=== PATIENT | female | born 1950 | race Caucasian/White ===

== ENCOUNTER 2023-09-22 06:41 | Outpatient (REF) | payer BC, SELFPAY ==
--- NOTE | ~2023-09-22 | XR_ITS ---
EXAMINATION: XR KNEE, LEFT CLINICAL INFORMATION: Pain in left knee. COMPARISON: None available. TECHNIQUE: Three views of the left knee. FINDINGS: The bones are diffusely demineralized. Moderate joint effusion. Status post total knee arthroplasty. Hardware appears intact. Alignment is appropriate. XR/XR knee LT 3V IMPRESSION: Status post total knee arthroplasty. Hardware appears intact.
== END 2023-09-22 06:42 | disposition home or self-care (01) ==
LOC: HO.HOSX 06:41
PROVIDERS: Visit Provider Orthopaedic Surgery
DX: M25.562 Pain in left knee (principal); M25.512 Pain in left shoulder; Z96.652 Presence of left artificial knee joint
CPT/HCPCS: 73562

== ENCOUNTER 2023-09-22 10:11 | Outpatient (AMB) | payer BC, SELFPAY ==
--- NOTE | 2023-09-22 10:12 | A.OFFVIS_ITS ---
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 The patient did undergo left total knee replacement surgery in March of 2022. She reports minimal discomfort in her left knee. She denies any fevers or chills. The patient states that she underwent left shoulder rotator cuff repair surgery several years ago. She apparently re-injured her shoulder following that surgery and required revision surgery. The patient states that she has difficulty lifting her left hand above shoulder height. She has done physical therapy exercises which gave her minimal relief. The patient has been told that she may have re-injured her rotator cuff tendons. Allergies enbril Allergy (Mild, Uncoded 09/22/23 10:22) Hives humara Allergy (Mild, Uncoded 09/22/23 10:22) Hives PFSH Surgical History (Updated 09/22/23 @ 10:24 by Guillermina Rojas CMA) Hx of shoulder surgery Hx of left knee surgery (~03/2022) Social History (Updated 09/22/23 @ 10:23 by Guillermina Rojas CMA) Patient Tobacco Use Status: Never used Tobacco Current occupational status: retired Current occupation: Right hand dominant Physical Exam Vital Signs: BMI result Body Mass Index 21.6 Const Other: Well-nourished well-developed very friendly female awake alert and oriented x3 in no acute distress Extrem Other: Bilateral upper extremity examination shows good capillary refill, no skin lesions noted, normal sensation light touch Left shoulder examination shows decreased range of motion when compared to her right shoulder, 3/5 strength with supraspinatus testing, positive impingement signs, no instability Left knee examination shows that the surgical incision is well healed, no erythema, full active extension and flexion to 125 degrees, her patella tracks well Results Reviewed Results Reviewed: X-rays of the patient's left knee show a total knee arthroplasty in good position with no signs of loosening, no acute bony abnormalities Assessment & Plan Assessment & Plan (1) Left shoulder pain: Code(s): M25.512 - Pain in left shoulder Category: Medical (2) Left knee pain: Code(s): M25.562 - Pain in left knee Category: Medical Plan Ms. Gómez continues to do well after undergoing left total knee replacement surgery in March 2022. She will continue with her home exercise program. She does know to take antibiotics before any dental work. The patient does have progressively worsening left shoulder pain and weakness most likely due to a recurrent rotator cuff tear. Thus, I will send the patient for an MRI of her left shoulder for further evaluation. I will see her back once the MRI is completed to discuss the findings and treatment options. Feel free to call me at any time should questions regarding her orthopedic management arise. I spent 20 minutes in reviewing the patient's records and imaging studies, seeing the patient and documenting in the medical record. Orders: Orders XR knee LT 3V Today M25.562 - Pain in left knee MR shoulder LT wo con Today M25.512 - Pain in left shoulder Coding Level of Care Code Est Pt Level 3 (33384) Diagnoses Left shoulder pain M25.512 Left knee pain M25.562
[2023-09-22 10:20] VITALS: BMI 21.6
== END 2023-09-22 10:54 | disposition home or self-care (01) ==
PROVIDERS: PCP Internal Medicine; Visit Provider Orthopaedic Surgery
DX: M25.512 Pain in left shoulder (principal); M25.562 Pain in left knee
CPT/HCPCS: 99213

== ENCOUNTER 2023-10-19 10:08 | Outpatient (AMB) | payer MEDICARE, SELFPAY ==
[2023-10-19 10:28] VITALS: BMI 21.6
--- NOTE | 2023-10-19 10:28 | MHC.OFFVIS ---
Vital Signs 10/19/23 10:28 Height 5 ft 3 in Weight 122 lb BMI 21.6 Intake Visit Reasons: Preop LT shoulder 10/28/23 DR Intake Note: Minal Winkler is a 72 year old female who presents with complaints of progressively worsening left shoulder pain and stiffness. The patient states that she underwent left shoulder rotator cuff repair surgery several years ago. She apparently re-injured her shoulder following that surgery and required revision surgery. The patient states that she has difficulty lifting her left hand above shoulder height. She has done physical therapy exercises which gave her minimal relief. She has had injections in the past which gave her minimal relief. Allergies kiwi Allergy (Severe, Verified 10/19/23 10:30) Anaphylaxis enbril Allergy (Intermediate, Uncoded 10/19/23 10:30) Hives humara Allergy (Intermediate, Uncoded 10/19/23 10:30) Hives Medication List - Last Reconciled 10/19/23 by Alexander Babb MD acetaminophen 1,000 mg PO Q6H PRN carvedilol 3.125 mg PO BID doxycycline monohydrate 100 mg PO BID ferrous sulfate (iron) 325 mg PO DAILY hydrochlorothiazide 25 mg PO DAILY losartan 100 mg PO DAILY simvastatin 20 mg PO BEDTIME upadacitinib ER (Rinvoq) 15 mg PO Q OTHER DAY PFSH Medical History Hx of renal calculi Anemia Rheumatoid arthritis Elevated cholesterol HTN (hypertension) Surgical History Hx of LASIK Hx of colonoscopy History of surgery on right wrist (~2018) S/P MARISABEL-BSO (total abdominal hysterectomy and bilateral salpingo-oophorectomy) (~1990) History of total left knee replacement (TKR) (~03/2022) History of repair of left rotator cuff History of bladder surgery (~03/2023) Social History Household Members: Spouse Housing: Condominium Are you a primary care management associate to a significant other at home: No Do you presently have visiting nurse or other home services: No Patient Tobacco Use Status: Former Tobacco user Quit Date: 1983 Tobacco use type: Cigarette Current occupational status: retired Current occupation: Right hand dominant Physical Exam Vital Signs: BMI result Body Mass Index 21.6 Const Other: Well-nourished well-developed very friendly female awake alert and oriented x3 in no acute distress Extrem Other: Bilateral upper extremity examination shows good capillary refill, no skin lesions noted, normal sensation light touch Left shoulder examination shows that the surgical incisions are well healed, no erythema, decreased active and passive range of motion when compared to her right shoulder, 4+ out of 5 strength with supraspinatus testing, no instability Results Reviewed Results Reviewed: MRI of the patient's left shoulder shows severe acromioclavicular joint narrowing, a type 2 acromion, signal change within the supraspinatus tendon most likely due to adhesive capsulitis Assessment & Plan Assessment & Plan (1) Left shoulder pain: Code(s): M25.512 - Pain in left shoulder Category: Medical Plan Ms. Gómez presents with left shoulder pain and stiffness due to impingement syndrome, acromioclavicular joint arthritis and adhesive capsulitis. I had a lengthy discussion with the patient regarding the treatment options. At this point she has failed continued non operative treatments. The risks and benefits of left shoulder surgery were discussed at length with the patient. The patient wishes to proceed with surgery. Surgery will most likely involve left shoulder diagnostic arthroscopy with distal clavicle excision, acromioplasty, anterior capsular release and manipulation under anesthesia. The patient was given a prescription for Vicodin at her preoperative appointment. She will follow-up as instructed. Feel free to call me at any time should questions regarding her orthopedic management arise. I spent 21 minutes in reviewing the patient's records and imaging studies, seeing the patient and documenting in the medical record. Medications: New hydrocodone-acetaminophen 5-325 mg Partial Fill upon patient request. Take 1-2 tabs every 4 hours as needed for pain following your left shoulder surgery 2 tabs PO Q4H 1 week PRN 40 tabs 0RF pain Coding Level of Care Code Est Pt Level 3 (76222) Diagnoses Left shoulder pain M25.512
== END 2023-10-19 10:48 | disposition home or self-care (01) ==
PROVIDERS: PCP Internal Medicine; Visit Provider Orthopaedic Surgery
DX: M25.512 Pain in left shoulder (principal)
CPT/HCPCS: 99214

== ENCOUNTER → 2023-10-19 10:08 | Outpatient (BNVA) | payer MEDICARE, SELFPAY | PROVIDERS: PCP Internal Medicine; Visit Provider Orthopaedic Surgery | DX: M25.512 Pain in left shoulder (principal) | CPT/HCPCS: 99212 ==

== ENCOUNTER 2023-10-28 10:04 | Day surgery (SDC) | payer MEDICARE, SELFPAY ==
[2023-10-14 09:39] VITALS: BMI 21.3
[2023-10-28 11:03] VITALS: BP 138/61; PULSE 70; RESP 16; TEMP 36.4; O2SAT 98; BMI 22.2
--- NOTE | 2023-10-28 11:25 | HO.ANESPROP2 ---
Documented by User: Darcie Rodriguez NP 10/26/23 13:45 HPI - Anesthesia Eval Consult details Narrative: 72yo F for Left Shoulder Arthroscopy distal clavicle excision,Acromioplasty,capsular release Medically optimized per [facility] Preop clinic [facility] Active Problems Active Problems: All Active Problems (Updated 10/14/23 @ 09:39 by Hanna George RN) Left shoulder pain (Acute) Left knee pain (Acute) Past Medical History Medical History Hx of renal calculi Anemia Rheumatoid arthritis Elevated cholesterol HTN (hypertension) Surgical History Surgical History Hx of LASIK Hx of colonoscopy History of surgery on right wrist (~2018) S/P MARISABEL-BSO (total abdominal hysterectomy and bilateral salpingo-oophorectomy) (~1990) History of total left knee replacement (TKR) (~03/2022) History of repair of left rotator cuff History of bladder surgery (~03/2023) Social History Social History Household Members: [facility] Are you a primary director day care center to a significant other at home: No Do you presently have visiting nurse or other home services: No Patient Tobacco Use Status: Former Tobacco user Tobacco use type: Cigarette Use of substances other than those prescribed or required for medical reasons: No Have you been hit, kicked, punched, or otherwise hurt by someone within the past year? If so, by whom?: No Are you DNR?: No Advance Directives: No Advance Directives Information Provided: Yes Advance Directives on File: No Recently lost weight without trying: No Nutrition Risks: No Nutritional Risk Poor oral hygiene: No Current occupational status: retired Current occupation: Right hand dominant Meds Allergies Allergy/AdvReac Type Severity Reaction Status Date / Time kiwi Allergy Severe Anaphylaxis Verified 10/28/23 10:44 enbril Allergy Intermediate Hives Uncoded 10/28/23 10:44 humara Allergy Intermediate Hives Uncoded 10/28/23 10:44 Active Medications: Current Medications Cefazolin Sodium/Dextrose (Ancef) 2 gm in 50 mls @ 100 mls/hr IV PREOP ONE Stop: 10/28/23 06:02 Home Medications ?Medication ?Instructions ?Recorded ?Confirmed ?Last Taken ?Type carvedilol 3.125 mg tablet 3.125 mg PO BID 09/22/23 10/28/23 10/28/23 History hydrochlorothiazide 25 mg tablet 25 mg PO DAILY 09/22/23 10/28/23 10/27/23 History losartan 100 mg tablet 100 mg PO DAILY 09/22/23 10/28/23 10/27/23 History simvastatin 20 mg tablet 20 mg PO BEDTIME 09/22/23 10/28/23 Unknown History upadacitinib 15 mg tablet,extended 15 mg PO Q OTHER DAY 09/22/23 10/28/23 10/25/23 History release 24 hr (Rinvoq) acetaminophen 500 mg tablet 1,000 mg PO Q6H PRN Pain 10/14/23 10/28/23 10/27/23 History ferrous sulfate 325 mg (65 mg 325 mg PO DAILY 10/14/23 10/28/23 10/27/23 History iron) tablet (iron) doxycycline monohydrate 100 mg 100 mg PO BID 10/19/23 10/28/23 10/27/23 History tablet Exam Height,Weight and Vital Signs: Height 5 ft 3 in Weight 54.431 kg Pertinent Lab Results Pertinent Lab Results: 09/2023 BMP WNL except slight elevated BUN/Creat Narrative Narrative: EKG 09/2023 NSR @ 80 Low volt QRS [address] and T abn Assessment and Plan Assessment Anesthesia Assessment: Chart Reviewed Documented by User: Kimber Copeland DO 10/28/23 14:36 PMFSH Past Medical History Medical History Hx of renal calculi Anemia Rheumatoid arthritis Elevated cholesterol HTN (hypertension) Family History Family history of problems with anesthesia: No Surgical History Surgical History Hx of LASIK Hx of colonoscopy History of surgery on right wrist (~2018) S/P MARISABEL-BSO (total abdominal hysterectomy and bilateral salpingo-oophorectomy) (~1990) History of total left knee replacement (TKR) (~03/2022) History of repair of left rotator cuff History of bladder surgery (~03/2023) History of Problems with Anesthesia: No Social History Social History Household Members: [facility] Are you a primary director day care center to a significant other at home: No Do you presently have visiting nurse or other home services: No Patient Tobacco Use Status: Former Tobacco user Tobacco use type: Cigarette Use of substances other than those prescribed or required for medical reasons: No Have you been hit, kicked, punched, or otherwise hurt by someone within the past year? If so, by whom?: No Are you DNR?: No Advance Directives: No Advance Directives Information Provided: Yes Advance Directives on File: No Recently lost weight without trying: No Nutrition Risks: No Nutritional Risk Poor oral hygiene: No Current occupational status: retired Current occupation: Right hand dominant Meds Allergies Allergy/AdvReac Type Severity Reaction Status Date / Time kiwi Allergy Severe Anaphylaxis Verified 10/28/23 10:44 enbril Allergy Intermediate Hives Uncoded 10/28/23 10:44 humara Allergy Intermediate Hives Uncoded 10/28/23 10:44 Home Medications ?Medication ?Instructions ?Recorded ?Confirmed ?Last Taken ?Type carvedilol 3.125 mg tablet 3.125 mg PO BID 09/22/23 10/28/23 10/28/23 History hydrochlorothiazide 25 mg tablet 25 mg PO DAILY 09/22/23 10/28/23 10/27/23 History losartan 100 mg tablet 100 mg PO DAILY 09/22/23 10/28/23 10/27/23 History simvastatin 20 mg tablet 20 mg PO BEDTIME 09/22/23 10/28/23 Unknown History upadacitinib 15 mg tablet,extended 15 mg PO Q OTHER DAY 09/22/23 10/28/23 10/25/23 History release 24 hr (Rinvoq) acetaminophen 500 mg tablet 1,000 mg PO Q6H PRN Pain 10/14/23 10/28/23 10/27/23 History ferrous sulfate 325 mg (65 mg 325 mg PO DAILY 10/14/23 10/28/23 10/27/23 History iron) tablet (iron) doxycycline monohydrate 100 mg 100 mg PO BID 10/19/23 10/28/23 10/27/23 History tablet Exam Exam Date and Time: October 28, 2023 1123 Height,Weight and Vital Signs: Height 5 ft 3 in Weight 54.431 kg Vital Signs Temperature 97.6 F 10/28/23 11:03 Pulse Rate 70 10/28/23 11:03 Respiratory Rate 16 10/28/23 11:03 Blood Pressure 138/61 10/28/23 11:03 Pulse Oximetry 98 10/28/23 11:03 Oxygen Delivery Method Room Air 10/28/23 11:03 Temperature 97.3 F 10/28/23 14:20 Pulse Rate 64 10/28/23 14:30 Respiratory Rate 16 10/28/23 14:30 Blood Pressure 153/74 H 10/28/23 14:30 Pulse Oximetry 97 10/28/23 14:30 Oxygen Delivery Method Room Air 10/28/23 14:30 Airway Mallampati Class: I TM Dist: >3cm Neck ROM: Full Loose/Missing/Broken Teeth: No (patient denies any loose or broken teeth) Heart: S1S2 Lungs: CTAB Assessment and Plan Assessment Anesthesia Assessment: Anesthesia Plan Discussed and Chart Reviewed Final Anesthetic Review Family History of Problems with Anesthesia: No History of Problems with Anesthesia: No NPO: Yes ASA Class: II Final Preanesthetic Review: No Changes in Pt Med Stat, Meds/Allgs Chart Reviewed, Consent Obtained/Reviewed and Anes Risks/Benef Reviewed Patient Risk: Low Procedure Risk: Intermediate Anesthetic Plan Anesthetic Plan: GA, Regional Block (left brachial plexus block) and Agree w/ Assess. and Plan Disposition: Standard PACU
[2023-10-28] MEDS: Lactated Ringers 1,000 ML 100 ML IVCONT (11:30)
--- NOTE | 2023-10-28 14:19 | P.BOP_ITS ---
Brief Operative Note Date of Service: 10/28/23 Pre-op diagnosis: Left shoulder impingement syndrome, left shoulder acromioclavicular joint arthritis, left shoulder glenohumeral joint arthritis, left shoulder adhesive capsulitis Post-op diagnosis: same Procedure: Left shoulder diagnostic arthroscopy with left shoulder arthroscopic distal clavicle excision, left shoulder arthroscopic acromioplasty, left shoulder arthroscopic glenohumeral joint debridement, left shoulder arthroscopic anterior capsular release, left shoulder manipulation under anesthesia Implants: none Surgeon: Alexander Babb MD Anesthesia: GLMA and regional Was an Theatrical Scenic Designer used for this Procedure?: No Estimated blood loss (mL): 10 Pathology: none sent Condition: stable Disposition: PACU
[2023-10-28 14:20] VITALS: BP 155/69; PULSE 60; RESP 14; TEMP 36.3; O2SAT 98
--- NOTE | 2023-10-28 14:20 | P.OP_ITS ---
Operative Note Operative Note Date of Service: 10/28/23 Narrative: After the patient was identified as Minal Gómez and her left shoulder was initialed by myself the patient was brought to the holding area where a left shoulder interscalene regional block was performed by the anesthesiologist in routine fashion. The patient was then brought to the operating room where general anesthesia was induced by the anesthesiologist in routine fashion. The patient was given 2 grams of IV Ancef preoperatively for infection prophylaxis. Examination under anesthesia of the patient's left shoulder showed decreased range of motion when compared to the right shoulder. The patient's left mateo ulder had forward flexion to 120 degrees compared to 160 degrees, external rotation to 30 degrees compared to 50 degrees, and internal rotation to 30 degrees compared to 40 degrees. The patient was gently positioned in the beach chair position with all bony prominences well padded. The patient's left shoulder region and upper extremity were prepped and draped in sterile fashion. A formal time-out was completed. A #11 scalpel blade was used to make a posterior portal 2 cm inferior and 1 cm medial to the posterolateral corner of the acromion. Blunt trocar technique was used to enter the glenohumeral joint in routine fashion. An anterior portal was made just lateral to the coracoid process after proper positioning was confirmed using a spinal needle. Diagnostic arthroscopy showed diffuse grade 2 and 3 degenerative changes of the humeral head articular surface as well as grade 3 and 4 degenerative changes of the glenoid articular surface. The articular surfaces of the humeral head and glenoid were then made smooth using the arthroscopic shaver. There was no evidence of rotator cuff tearing. The biceps tendon was not identified. There was inflammation of the anterior joint capsule consistent with adhesive capsulitis. The ArthroCare Wand was then used to perform an anterior capsular release between the inferior border of the biceps tendon and the superior border of the subscapularis tendon. The arthroscope was then placed from the posterior portal into the subacromial space. A lateral portal was made 2 fingerbreadths lateral to the anterior lateral corner of the acromion. The ArthroCare Wand was used to ablate soft tissues along the undersurface of the acromion as well as to excise the coracoacromial ligament. There was a sharp spur along the undersurface of the acromion which was removed using the hooded bur. The arthroscope was then placed into the lateral portal and the acromioplasty was completed with the bur in the posterior portal using the posterior aspect of the acromion as a cutting block. The ArthroCare Wand was then brought in through the anterior portal and was used to ablate soft tissues along the acromioclavicular joint and distal clavicle. The posterior and superior ligamentous structures were left intact. A distal clavicle excision of 4 mm was performed using the hooded bur. Any remaining bursal tissue was removed using the arthroscopic shaver. The subacromial space was irrigated and then drained. All arthroscopic instruments were removed. A gentle manipulation under anesthesia was then performed. Full passive range of motion was easily attained. The 3 portals were closed with 3-0 nylon interrupted suture. The subacromial space was injected with Marcaine. Dry sterile dressing was placed over all incisions. The patient's left upper extremity was placed into a sling. The patient was awoken and extubated in the operating room. The patient was transferred to the recovery room in stable condition.
[2023-10-28 14:25] VITALS: BP 155/70; PULSE 72; RESP 16; O2SAT 99
[2023-10-28 14:30] VITALS: BP 153/74; PULSE 64; RESP 16; O2SAT 97
[2023-10-28 14:35] VITALS: BP 166/77; PULSE 62; RESP 16; O2SAT 98
[2023-10-28] MEDS: cefTRIAXone sodium 1 GM in 0.9 % Sodium Chloride 50 ML IV (14:41)
[2023-10-28 14:50] VITALS: BP 155/70; PULSE 66; RESP 16; O2SAT 98
== END 2023-10-28 15:46 | disposition home or self-care (01) ==
PROVIDERS: Visit Provider Orthopaedic Surgery
PROC: (CPT 29805; principal; 2023-10-28 13:00)
DX: M75.42 Impingement syndrome of left shoulder (principal); M19.012 Primary osteoarthritis, left shoulder; M75.02 Adhesive capsulitis of left shoulder; M19.022 Primary osteoarthritis, left elbow; I10 Essential (primary) hypertension; Z79.899 Other long term (current) drug therapy
CPT/HCPCS: 29822; 29826; J0131; J0171; J0690; J0696; J1100; J2250; J2405; J2704; J2795; J3010

== ENCOUNTER → 2023-10-28 10:04 | Outpatient (BNV) | payer MEDICARE, SELFPAY | PROVIDERS: Visit Provider Orthopaedic Surgery | DX: M75.42 Impingement syndrome of left shoulder (principal); M19.012 Primary osteoarthritis, left shoulder; M75.02 Adhesive capsulitis of left shoulder | CPT/HCPCS: 29824; 29826 ==

== ENCOUNTER 2023-11-10 09:04 | Outpatient (AMB) | payer MEDICARE, SELFPAY ==
--- NOTE | 2023-11-10 09:07 | MHC.OFFVIS ---
Vital Signs 11/10/23 09:10 Height 5 ft 3 in Weight 120 lb BMI 21.3 Handedness Right Intake Visit Reasons: PO LT shoulder 10/28/23 Intake Note: Minal is a 73 year old female who presents today for a post operative visit, s/p Left shoulder 10/28/23 . The patient reports mild intermittent discomfort in her left shoulder. She has no longer taking narcotics for discomfort. She denies any fevers or chills. She continues with her home stretching program. Allergies kiwi Allergy (Severe, Verified 11/10/23 09:10) Anaphylaxis enbril Allergy (Intermediate, Uncoded 11/10/23 09:10) Hives humara Allergy (Intermediate, Uncoded 11/10/23 09:10) Hives Medication List - Last Reconciled 11/11/23 by Alexander Babb MD acetaminophen 1,000 mg PO Q6H PRN carvedilol 3.125 mg PO BID doxycycline monohydrate 100 mg PO BID ferrous sulfate (iron) 325 mg PO DAILY hydrochlorothiazide 25 mg PO DAILY losartan 100 mg PO DAILY simvastatin 20 mg PO BEDTIME upadacitinib ER (Rinvoq) 15 mg PO Q OTHER DAY PFSH Medical History Hx of renal calculi Anemia Rheumatoid arthritis Elevated cholesterol HTN (hypertension) Surgical History Hx of LASIK Hx of colonoscopy History of surgery on right wrist (~2018) S/P MARISABEL-BSO (total abdominal hysterectomy and bilateral salpingo-oophorectomy) (~1990) History of total left knee replacement (TKR) (~03/2022) History of repair of left rotator cuff History of bladder surgery (~03/2023) Social History Household Members: Spouse Housing: Condominium Are you a primary acute care occupational therapist to a significant other at home: No Do you presently have visiting nurse or other home services: No Patient Tobacco Use Status: Former Tobacco user Tobacco use type: Cigarette Current occupational status: retired Current occupation: Right hand dominant Physical Exam Vital Signs: BMI result Body Mass Index 21.3 Extrem Other: Left shoulder examination shows that the surgical incisions are healing well, no erythema, improved range of motion when compared to her preoperative exam, mild discomfort with range of motion, no instability Assessment & Plan Assessment & Plan (1) Left shoulder pain: Code(s): M25.512 - Pain in left shoulder Category: Medical Plan Ms. Gómez is doing very well after undergoing left shoulder arthroscopic surgery on 10/28/2023. Her sutures were removed and Steri-Strips placed over her incisions. She will continue with her home stretching program. The do's and don'ts of lifting were discussed at length with the patient. She will contact me prior to her follow-up appointment in 6 weeks should any questions or concerns arise. Feel free to call me at any time should questions regarding her orthopedic management arise. Coding Level of Care Code Global (06138) Diagnoses Left shoulder pain M25.512
[2023-11-10 09:10] VITALS: BMI 21.3
== END 2023-11-10 09:24 | disposition home or self-care (01) ==
PROVIDERS: PCP Internal Medicine; Visit Provider Orthopaedic Surgery
DX: M25.512 Pain in left shoulder (principal)
CPT/HCPCS: 99024

== ENCOUNTER → 2023-11-10 09:04 | Outpatient (BNVA) | payer MEDICARE, SELFPAY | PROVIDERS: PCP Internal Medicine; Visit Provider Orthopaedic Surgery | DX: Z47.89 Encounter for other orthopedic aftercare (principal); M25.512 Pain in left shoulder; Z98.890 Other specified postprocedural states | CPT/HCPCS: 99212 ==

== ENCOUNTER 2023-12-29 10:37 | Outpatient (AMB) | payer MEDICARE, SELFPAY ==
--- NOTE | 2023-12-29 10:37 | MHC.OFFVIS ---
Intake Visit Reasons: PO LT shoulder 10/28/23 DR Hebert Note: Minal is a 73 year old female who presents today for a post operative visit, s/p left shoulder done 10/28/[address] Babb. Patient reports she is doing well and she continues to do home stretches. She denies any fevers or chills. She does not take any medicines for discomfort. Allergies kiwi Allergy (Severe, Verified 12/29/23 10:37) Anaphylaxis enbril Allergy (Intermediate, Uncoded 12/29/23 10:37) Hives humara Allergy (Intermediate, Uncoded 12/29/23 10:37) Hives Medication List - Last Reconciled 12/29/23 by Alexander Babb MD acetaminophen 1,000 mg PO Q6H PRN carvedilol 3.125 mg PO BID ferrous sulfate (iron) 325 mg PO DAILY hydrochlorothiazide 25 mg PO DAILY losartan 100 mg PO DAILY simvastatin 20 mg PO BEDTIME upadacitinib ER (Rinvoq) 15 mg PO Q OTHER DAY PFSH Medical History Hx of renal calculi Anemia Rheumatoid arthritis Elevated cholesterol HTN (hypertension) Surgical History Hx of LASIK Hx of colonoscopy History of surgery on right wrist (~2018) S/P MARISABEL-BSO (total abdominal hysterectomy and bilateral salpingo-oophorectomy) (~1990) History of total left knee replacement (TKR) (~03/2022) History of repair of left rotator cuff History of bladder surgery (~03/2023) Social History Household Members: Spouse Housing: Condominium Are you a primary acute care assistant to a significant other at home: No Do you presently have visiting nurse or other home services: No Patient Tobacco Use Status: Former Tobacco user Tobacco use type: Cigarette Current occupational status: retired Current occupation: Right hand dominant Physical Exam Extrem Other: Left shoulder examination shows that the surgical incisions are well healed, no erythema, almost full range of motion when compared to her right shoulder, minimal discomfort with range of motion, 5/5 strength with supraspinatus testing, no instability Assessment & Plan Assessment & Plan (1) Left shoulder pain: Code(s): M25.512 - Pain in left shoulder Category: Medical Plan Ms. Gómez continues to do well after undergoing left shoulder arthroscopic surgery on 10/28/2023. She will continue with her [id number] exercises to prevent stiffness. The do's and don'ts of lifting were discussed at length with the patient. She will follow up with me on an as-needed basis should her symptoms not plateau at an unacceptable level over the next few months. Feel free to call me at any time should questions regarding her orthopedic management arise. Coding Level of Care Code Global (51021) Diagnoses Left shoulder pain M25.512
== END 2023-12-29 11:09 | disposition home or self-care (01) ==
PROVIDERS: PCP Internal Medicine; Visit Provider Orthopaedic Surgery
DX: M25.512 Pain in left shoulder (principal)
CPT/HCPCS: 99024

== ENCOUNTER → 2023-12-29 10:37 | Outpatient (BNVA) | payer MEDICARE, SELFPAY | PROVIDERS: PCP Internal Medicine; Visit Provider Orthopaedic Surgery | DX: Z47.89 Encounter for other orthopedic aftercare (principal); M25.512 Pain in left shoulder; Z98.890 Other specified postprocedural states | CPT/HCPCS: 99212 ==

== ENCOUNTER 2024-03-14 10:11 | Outpatient (AMB) | payer MEDICARE, SELFPAY ==
[2024-03-14 10:20] VITALS: BMI 21.3
--- NOTE | 2024-03-14 10:20 | MHC.OFFVIS ---
Vital Signs 03/14/24 10:20 Height 5 ft 3 in Weight 120 lb BMI 21.3 Intake Visit Reasons: Left thigh pain Intake Note: Minal Winkler margaret 73 year old female who presents with complaints of intermittent left thigh pain as well as aches throughout her body. The patient's does have a history of rheumatoid arthritis. She states that she was recently seen by a transplant coordinator in [place] who switched her medications. She has been on a new medication for approximately 1 month. She was told that it may take up to 3 months for the medication to help with her pain. She denies any fevers or chills. She denies any locking or giving way. She has taken Tylenol and anti-inflammatory medicines which gave her mild relief. Allergies kiwi Allergy (Severe, Verified 03/14/24 10:22) Anaphylaxis enbril Allergy (Intermediate, Uncoded 12/29/23 10:37) Hives humara Allergy (Intermediate, Uncoded 12/29/23 10:37) Hives Medication List - Last Reconciled 03/14/24 by Alexander Babb MD acetaminophen 1,000 mg PO Q6H PRN carvedilol 3.125 mg PO BID ferrous sulfate (iron) 325 mg PO DAILY hydrochlorothiazide 25 mg PO DAILY losartan 100 mg PO DAILY simvastatin 20 mg PO BEDTIME upadacitinib ER (Rinvoq) 15 mg PO Q OTHER DAY PFSH Medical History Hx of renal calculi Anemia Rheumatoid arthritis Elevated cholesterol HTN (hypertension) Surgical History Hx of LASIK Hx of colonoscopy History of surgery on right wrist (~2018) S/P MARISABEL-BSO (total abdominal hysterectomy and bilateral salpingo-oophorectomy) (~1990) History of total left knee replacement (TKR) (~03/2022) History of repair of left rotator cuff History of bladder surgery (~03/2023) Social History Household Members: Spouse Housing: Condominium Are you a primary post acute care registered nurse to a significant other at home: No Do you presently have visiting nurse or other home services: No Patient Tobacco Use Status: Former Tobacco user Tobacco use type: Cigarette Current occupational status: retired Current occupation: Right hand dominant Physical Exam Vital Signs: BMI result Body Mass Index 21.3 Const Other: Well-nourished well-developed very friendly female awake alert and oriented x3 in no acute distress Extrem Other: Bilateral lower extremity examination shows good capillary refill, no skin lesions noted, normal sensation light touch Left knee examination shows that the surgical incision is well healed, no erythema, full active extension and flexion to 120 degrees, her patella tracks well Assessment & Plan Assessment & Plan (1) Pain of left thigh: Code(s): M79.652 - Pain in left thigh Plan Ms. Gómez presents with left thigh pain and diffuse muscle aches most likely due to a flare-up of her rheumatoid arthritis. At this point she does not appear to have any evidence of left total knee arthroplasty infection or mechanical failure. I did give the patient a prescription for tramadol to help with her discomfort. She will follow up with her transplant coordinator as scheduled. She will contact me prior to her follow-up appointment in 3 months should her symptoms worsen in any way. Feel free to call me at any time should questions regarding her orthopedic management arise. I spent 22 minutes in reviewing the patient's records and imaging studies, seeing the patient and documenting in the medical record. Medications: New tramadol 50 mg PO Q8H PRN 60 tabs 0RF pain Coding Level of Care Code Est Pt Level 3 (11311) Complex EM visit Add On G2211 Diagnoses Pain of left thigh M79.652
== END 2024-03-14 10:55 | disposition home or self-care (01) ==
PROVIDERS: PCP Internal Medicine; Visit Provider Orthopaedic Surgery
DX: M79.652 Pain in left thigh (principal)
CPT/HCPCS: 99213; G2211

== ENCOUNTER → 2024-03-14 10:11 | Outpatient (BNVA) | payer MEDICARE, SELFPAY | PROVIDERS: PCP Internal Medicine; Visit Provider Orthopaedic Surgery | DX: M79.652 Pain in left thigh (principal) | CPT/HCPCS: 99212 ==

== ENCOUNTER 2024-12-03 13:14 | Outpatient (AMB) | payer MEDICARE, SELFPAY ==
--- NOTE | 2024-12-03 13:17 | MHC.OFFVIS ---
Vital Signs 12/03/24 13:21 Height 5 ft 3 in Weight 120 lb BMI 21.3 Intake Visit Reasons: OV- LT shoulder 10/28/23 , Neck pain Intake Note: Minal is a 74 year old female who presents with complaints of progressively worsening neck pain which radiates into her left arm. She describes her pain as sharp in nature. She does have a history of rheumatoid arthritis. She has not had surgery on her neck. Her symptoms have gotten worse over the last year. She also reports intermittent weakness in her left arm. She has failed the last 6 weeks of conservative treatment which have included Tylenol, anti-inflammatory medicines, a home exercise program and physical therapy exercises. The patient did undergo left shoulder arthroscopic surgery on 10/28/2023. She reports mild to moderate intermittent discomfort in her left shoulder as well. Allergies kiwi Allergy (Severe, Verified 12/03/24 13:20) Anaphylaxis enbril Allergy (Intermediate, Uncoded 12/03/24 13:20) Hives humara Allergy (Intermediate, Uncoded 12/03/24 13:20) Hives Medication List - Last Reconciled 12/03/24 by Alexander Babb MD acetaminophen 1,000 mg PO Q6H PRN carvedilol 3.125 mg PO BID ferrous sulfate (iron) 325 mg PO DAILY hydrochlorothiazide 25 mg PO DAILY losartan 100 mg PO DAILY simvastatin 20 mg PO BEDTIME tramadol 50 mg PO Q8H PRN upadacitinib ER (Rinvoq) 15 mg PO Q OTHER DAY PFSH Medical History Hx of renal calculi Anemia Rheumatoid arthritis Elevated cholesterol HTN (hypertension) Surgical History Hx of LASIK Hx of colonoscopy History of surgery on right wrist (~2018) S/P MARISABEL-BSO (total abdominal hysterectomy and bilateral salpingo-oophorectomy) (~1990) History of total left knee replacement (TKR) (~03/2022) History of repair of left rotator cuff History of bladder surgery (~03/2023) Social History Household Members: Spouse Housing: Condominium Are you a primary wound care technician to a significant other at home: No Do you presently have visiting nurse or other home services: No Patient Tobacco Use Status: Former Tobacco user Tobacco use type: Cigarette Current occupational status: retired Current occupation: Right hand dominant Physical Exam Const Other: Well-nourished well-developed very friendly female awake alert and oriented x3 in no acute distress Neck Other: Cervical spine examination shows left-sided paraspinal muscle tenderness, pain with range of motion, positive Spurling's test, 4/5 strength with testing of her left biceps and wrist extensors when compared to 5/5 strength on her right side Extrem Other: Left shoulder examination shows that the surgical incisions are well healed, no erythema, slightly decreased range of motion when compared to her right shoulder, 4/5 strength with supraspinatus testing, positive impingement signs, no instability Assessment & Plan Assessment & Plan (1) Neck pain on left side: Code(s): M54.2 - Cervicalgia Category: Medical Plan Ms. Gómez presents with progressively worsening neck pain which radiates into her left arm as well as left arm weakness possibly due to cervical stenosis or a disc herniation. Thus, I will send the patient for an MRI of her cervical spine for further evaluation. I will call her by phone to discuss the MRI results once they are available. She will call me prior to then should her symptoms worsen in any way. Feel free to call me at any time should questions regarding her orthopedic management arise. I spent 22 minutes in reviewing the patient's records and imaging studies, seeing the patient and documenting in the medical record. Orders: Orders MR cervical spine wo con 12/04/24 M54.2 - Cervicalgia Coding Level of Care Code Est Pt Level 3 (40038) Complex EM visit Add On G2211 Diagnoses Neck pain on left side M54.2
[2024-12-03 13:21] VITALS: BMI 21.3
--- OUTSIDE RECORDS SUMMARY | 2024-12-03 14:17 | XMS_ITS | Clinical Summary ---
Author Organization [facility] Address [address] [place] [address] Care Team Providers Care Didactic Instructor Name Role Phone Kell Oconnor MD Primary Care Provider Allergies Active Allergy Reactions Criticality Noted Date Comments Adalimumab Rash Low Etanercept Hives Kiwi Anaphylaxis High Medications losartan (COZAAR) 25 mg tablet daily. Active predniSONE (DELTASONE) 2.5 mg tablet daily. Active simvastatin (ZOCOR) 20 mg tablet daily. Active Family History Medical History Relation Comments Diabetic kidney disease Brother Lung cancer Mother Breast cancer Sister Relation Status Comments Brother Mother Alive Sister Social History Tobacco Use Types Packs/Day Years Used Date Smoking Tobacco: Former Smokeless Tobacco: Former Quit: 06/02/1978 Comments Unknown Sex and Gender Information Value Date Recorded Sex Assigned at Not on file Legal Sex Female 2:23 PM EST Gender Identity Not on file Sexual Orientation Not on file Last Filed Vital Signs Vital Sign Reading Time Taken Comments Blood Pressure - - Pulse - - Temperature - - Respiratory Rate - - Oxygen Saturation - - Inhaled Oxygen Concentration - - Weight 62.6 kg (138 lb) 04/02/2019 1:13 PM EST Height 160 cm (5' 3 ) 04/02/2019 1:13 PM EST Body Mass Index 24.45 04/02/2019 1:13 PM EST Plan of Treatment Health Maintenance Due Date Last Done Comments Bone Density Screening 1952 Breast Cancer Screening 1952 CT Colonography 1952 Colonoscopy 1952 Colorectal Cancer Screening 1952 FIT-DNA (Cologuard) 1952 FIT 1952 FOBT 1952 Flex Sigmoidoscopy - 5y 1952 HIV Screening 1952 DTaP,Tdap,and Td Vaccines (1 - Tdap) 1970 Pneumococcal Vaccine, 50+ Ye ars (1 of 1 - PCV) 2002 Zoster Vaccines (1 of 2) 2002 COVID-19 Vaccine (1 - 2023-2 5 season) 2024 Influenza Vaccine (#1) 2025 HPV Vaccines Aged Out No longer eligi ble based on patient's age to complete this topic Hepatitis A Vaccines Aged Out No long er eligible based on patient's age to complete this topic Meningococcal Vaccine Aged Out No olena magnus eligible based on patient's age to complete this topic Insurance MEDICARE PART A & B [facility] Care Teams Didactic Instructor Relationship Specialty Start Date End Date Kell Oconnor MD [address] [facility] [address] [place] [address] PCP - General Primary Care 03/26/19
--- OUTSIDE RECORDS SUMMARY | 2024-12-03 14:17 | XMS_ITS | Data Portability ---
Author Organization [place] - [facility], [facility] - INPATIENT Address [address] [place] [address] Assessment Encounter Date Assessment Date Assessment LastModified by Organization Details LastModified Time 12/11/2020 12/11/2020 DIAGNOSTIC IMAGING: I did have the opportunity to review radiographs as well as an MRI of the shoulder. Radiographs obtained today demonstrated well-centered humeral head relative to the glenoid. Acromiohumeral interval is well-maintained. She has mild degenerative changes of the glenohumeral joint. Axillary x-ray demonstrates a well-centered humeral head relative to the glenoid with mild degenerative changes. MRI of the shoulder which was from 09/26/20 demonstrates no obvious rotator cuff re-tear. She does have a displaced anchor laterally over the greater tuberosity. This was subsequently removed during her surgery in September. Again the rotator cuff itself does not demonstrate any obvious re-tear at this time, just post-surgical changes, however, this was prior to her most recent surgery. IMPRESSION: Kayy is a pleasant 70-year-old female with signs and symptoms of persistent shoulder pain concerning for rotator cuff re-tear. She also has a really significant amount of pain that is likely myofascial in nature. PLAN: I talked with Kayy and her in the office today about this. I do recommend getting a new MRI of the shoulder. This will give us the most accurate assessment of what her rotator cuff status is now. Based on the MRI, we can discuss both non-operative and operative findings, potentially however a lot of this will be dictated by what the MRI shows. Additionally I think we also talked about alternative treatment options to address her myofascial pain, which I do think is contributing a great deal to her overall symptoms. All of her questions were addressed today. I will see her back after I get the MRI to discuss the next steps in treatment. I spent a total of 30 minutes on the day of the visit, which included time spent preparing to see the patient by reviewing any pertinent aspects of the patient's medical record, such as prior clinical notes, imaging studies or test results, obtaining patient history, performing a medically necessary examination, counseling/educati ng the patient on both nonoperative and operative management of their condition including the expected recovery time frame and treatment course, ordering tests including MRI of the left shoulder, independently interpreting test results including radiographs and MRI of the left shoulder, coordinating patient care, and documenting information in the EHR. The patient did complete the COVID-19 screening handout and was deemed healthy to move forward with this appointment. This visit is a myyp-vu-fjgj visit during the COVID-19 pandemic Public Health Emergency. Based on my clinical judgment, I felt that this visit could not be provided safely and appropriately via TeleHealth. Based on available information prior to presentation, the patient had a high risk of significant worsening and potential functional impairment affecting ADLs if the visit was not completed today. The patient was seen in the office after following PPE use, Workforce Safety, Patient Safety and Infection Control protocols for all services provided today in accordance with [facility] and CDC guidelines. There was additional practice expense incurred due to the Public Health Emergency. This additional expense includes but is not limited to: Additional clinical staff and medical technical service specialist time for pre-screening Time spent reviewing COVID social distancing guidelines, precautions, instructions, and signage Patient symptom checking upon arrival Application, removal, and purchasing of additional PPE Additional cleaning of exam room, equipment, supplies, as well as cleaning supplies for that purpose. Not available 12/14/2020 22:59:57 12/22/2020 12/22/2020 DIAGNOSTIC IMAGING: I did have the opportunity to review new MRI of the left shoulder obtained on 12/16/20. MRI demonstrates no evidence of recurrent full thickness rotator cuff tear. She does have evidence of a fracture of the acromion, which is new compared to her previous MRI, which was obtained prior to surgery on 09/26/20. The fracture appears to be well-aligned with significant edema signal in the bone. She also has a joint effusion with significant synovitis in it, which is also somewhat different compared to her MRI prior to her most recent surgery. IMPRESSION: Kayy is a pleasant 70-year-old female with persistent left shoulder pain following arthroscopic surgery 2-1/2 months ago in the setting of a new acromion fracture, which occurred atraumatically. Overall this is concerning for a few different things. I am a little bit concerned about the presence of an indolent infection in the shoulder. Given that her surgery was more involved than they had anticipated given her persistent pain, synovitis in the joint as well as unexplained other factors, it could represent a low grade infection in the shoulder. PLAN: To this end, I would like to obtain ESR, CRP, CBC, and an image guided aspiration of the joint. I did briefly discuss if this was concerning for infection what would likely be involved in the process. I do not have a good explanation for why she would have atraumatically developed a new acromion fracture compared to prior to her last surgery. According to the surgeon s operative report, she did not have any subsequent acromioplasty performed, although she did have one performed a year ago. Additionally clinically she has some soreness in this area, however, no exquisite tenderness to palpation and therefore while I am not sure how she developed this fracture, I do think that it is not necessarily the main cause of her symptoms. It certainly may be if the infection is not concerning. Either way at this time I think we should proceed with obtaining inflammatory labs and aspiration. I will follow up with her after we have this information so we can discuss the next steps in treatment. All of her questions were addressed today. I spent a total of 20 minutes on the day of the visit, which included time spent preparing to see the patient by reviewing any pertinent aspects of the patient's medical record, such as prior clinical notes, imaging studies or test results, obtaining patient history, performing a medically necessary examination, counseling/educati ng the patient on both nonoperative and operative management of their condition including the expected recovery time frame and treatment course, ordering tests including ESR, CRP, WBC and fluoroscopically guided aspiration of the left shoulder, independently interpreting test results including MRI of the left shoulder, coordinating patient care, and documenting information in the EHR. The patient did complete the COVID-19 screening handout and was deemed healthy to move forward with this appointment. This visit is a ncfn-tk-fdjc visit during the COVID-19 pandemic Public Health Emergency. Based on my clinical judgment, I felt that this visit could not be provided safely and appropriately via TeleHealth. Based on available information prior to presentation, the patient had a high risk of significant worsening and potential functional impairment affecting ADLs if the visit was not completed today. The patient was seen in the office after following PPE use, Workforce Safety, Patient Safety and Infection Control protocols for all services provided today in accordance with [facility] and CDC guidelines. There was additional practice expense incurred due to the Public Health Emergency. This additional expense includes but is not limited to: Additional clinical staff and medical technical service specialist time for pre-screening Time spent reviewing COVID social distancing guidelines, precautions, instructions, and signage Patient symptom checking upon arrival Application, removal, and purchasing of additional PPE Additional cleaning of exam room, equipment, supplies, as well as cleaning supplies for that purpose. Not available 12/23/2020 23:51:04 Plan of Treatment Reminders Order Date Submit Date Provider Last Modified By Organization Details Last Modified Time Details Appointments None recorded. Lab ESR (erythrocyt e sedimentati on rate), blood 2020 021 [email or web address] Not available 12:38:00 C-reactive protein, quantitativ e, serum or plasma 2020 021 [email or web address] Not available 12:38:00 CBC 2020 021 [email or web address] Not available 12:38:00 Referral None recorded. Procedures fluoroscopy guided joint injection (PROC) - Left Shoulder/ Aspirate Left Glenohumera l send fluids for aerobic,camacho erobic, fungal, crystals and cell count/ HOLD FOR 14 DAYS 2020 021 [email or web address] [facility] ([facility] Scheduling), [address] [place], [address], 06:43:31 Surgeries None recorded. Imaging MRI, shoulder, w/o contrast - Left Shoulder/ Re-tear of rotator cuff Please call patient to schedule 2020 021 [facility] ([facility]), [address], [place], [address], 1 22:51:50 CT, wrist, w/o contrast 2018 019 [email or web address] [facility] [place], [address], [address], [place], [address], 9 07:19:08 Medication Orders None recorded. Patient TargetsNo targets recorded. Patient Instructions Encounter Date Encounter Id Patient Instructions Last Modified By Organization Details Last Modified Time 01/09/2019 [id number] The findings, diagnosis, and options are discussed including potential treatments. All questions are answered. We discussed a CT to confirm wrist fusion and further evaluate her wrist position. She will likely benefit from realignment or carpus and stabilization of distal ulna. Assuming union of the wrist fusion, a radius osteotomy may be needed to help centralize the carpus. Stabilization of the distal ulna will likely require tenodesis with ECU/FCU. She appears to have a palmaris and therefore that could be utilized for repair reconstruction or extensor EDQ if needed. Risks and benefits of possible surgery in future discussed , she would like to consider surgery in early Fall. Follow up will therefore be planned for after the CT. Patient will call if problems or questions. The patient is seen and examined with Dr. Schrader. Agree with above findings and plan. ZAFAR Not available 01/09/2019 12:35:07 02/13/2019 [id number] The findings, diagnosis, and options are discussed including potential treatments. She is doing well early on. ROM exercises reviewed along with wound care. She is provided and fitted with wrist splint today. All questions are answered. Follow up will be arranged in about 3 weeks. Patient will call if problems or questions. Not available 02/13/2019 13:20:07 03/05/2019 [id number] The findings, diagnosis, and options are discussed including potential treatments. She is doing very well as prior. ROM exercises reviewed along with strengthening. She does not feel formal therapy is needed. Progress activity as tolerated. All questions are answered. Follow up will be arranged in about 8 weeks. Patient will call if problems or questions. Not available 03/05/2019 11:53:16 Reason for Referral None Reported. Results Created Date Observation Date Name Description Value Unit Range Abnormal Flag Note LastModifiedBy Organization Detail LastModifiedTime 01/01/2001/14/[address] sterile site anaerobic culture NO ANAERO BES ISOLAT ED AFTER 14 DAYS. Not Available [facility] (Lab) [address] [place], [address], 01/14/2021 08:02:56 01/01/20 21 01/14/2021 KORT @ortho aerobic culture portion No Growth Not Available [facility] (Lab) [address] [facility] [place], [address], 01/14/2021 08:02:55 01/01/2001/01/2021 KGST @gram stain GRAM STAIN normal Not Available [facility] (Lab) [address] [facility] [place], [address], 01/14/2021 08:02:52 01/01/2001/01/2021 KGST @gram stain QUANTI TY NOT SUFFIC IENT normal Not Available [facility] (Lab) [address], [place], [address], 01/14/2021 08:02:52 01/01/20 21 12/31/[address] sterile site anaerobic culture FURTHE R INCUBA TION REQUIR ED TO RULE OUT ANAERO BES Not Available [facility] (Lab) [address] [place], [address], 01/01/2021 08:12:37 01/01/2001/01/2021 KORT @ortho aerobic culture portion No Growth Not Available [facility] (Lab) [address] [facility] [place], [address], 01/01/2021 08:12:36 01/01/20 21 01/01/2021 KGST @gram stain GRAM STAIN normal Not Available [facility] (Lab) [address] [facility] [place], [address], 01/01/2021 08:12:33 01/01/20 21 01/01/2021 KGST @gram stain QUANTI TY NOT SUFFIC IENT normal Not Available [facility] (Lab) [address] [facility] [place], [address], 01/01/2021 08:12:33 01/01/20 21 12/31/2020 [facility] sterile site anaerobic culture FURTHE R INCUBA TION REQUIR ED TO RULE OUT ANAERO BES Not Available [facility] (Lab) [address] [facility] [place], [address], 12/31/2020 21:16:51 01/21/20 19 01/19/2019 CT, wrist , w/o contr ast No observ ation record ed. [email or web address] [facility] [place] [address] [place] [place], [address], 01/23/2019 07:19:08 01/21/20 19 01/19/2019 CT, wrist , w/o contr ast No observ ation record ed. [email or web address] [facility] [place] [address] [address], [place], [address], 01/23/2019 07:18:32 12/12/19 21 09/26/2020 MRI, jose lara, w/o contr ast No observ ation record ed. [email or web address] Not Available 11/21 13:01:44 12/12/19 21 12/11/2020 XRjose http:/ [email or web address] ntegra tionPr ocesso r.aspx ?CMD=O KIRSTIE NEAL&ACC ESSION =[id number] dmichitson [facility] [address] [facility], [place], [address], 12/11/2020 14:18:02 12/17/19 21 12/16/2020 MRI, shoul jane, w/o contr ast [facility] [place] field Access ion Number : [id number] Patinegro t Name: Pari Jha Record Number : [id number] Date of : 1950 Date of Exam: 2020 Referr judie Physic robbie: Branden Harrington [employer] [address] [facility] [place] [address] Exam: MR Should er (C-) CPT 69602 - Left Room Descri ption: [place] [facility] Espr 2 1.5 MRI SHOULD ER LEFT WITHOU T CONTRA ST Histor y: Left should er pain for 3 years worsen ed by activi ty. Histor y of subacr omial decomp ressio n, distal clavic le excisi on, glenoh umeral debrid ement, biceps tendon esis, subsca pulari s and supras pinatu s tendon repair on 020, with remova l of a dislod ged anchor on 021. Techni que: MRI of the should er was perfor med withou t intrav enous contra st. Compar juana: 2020. FINDIN GS: Rotato r cuff: Unchan ged interm ediate T2 signal throug hout distal supras pinatu s and infras pinatu s tendon s, and increa sed interm ediate T2 signal throug h the distal subsca pulari s tendon , which may be a combin ation of tendin opathy and postop erativ e change . There is a 2 mm partia l-thic kness bursal -sided tear of the subsca pulari s tendon (serie s 3 image 12). Intact teres minor. Rotato r cuff muscle bulk appear s mainta ined. Glenoi d labrum and biceps tendon : Irregu larity /frayi ng of superi or labrum , which may be due to degene rative tearin g, unchan ged. Status post biceps tendon esis. Articu lar cartil age and Bone: New acromi al fractu re with callus format ion and surrou nding mild marrow edema. Status post distal clavic ular excisi on and subacr omial decomp ressio n. There is subcho ndral marrow edema in the edward inferi or glenoi d with mild overly ing chondr al surfac e irregu larity . No focal chondr al defect s are seen on the sergo l head. Persis tent hetero geneou s signal in the joint fluid throug hout the glenoh umeral joint and extend ing into the subsca pulari s recess , compat ible with synovi tis. IMPRES JESSIE: 1. Subacu te nondis placed acromi al fractu re. 2. No eviden ce of recurr ent full-t hickne ss rotato r cuff tear. Focal partia l-thic kness bursal -sided subsca pulari s tendon tear. 3. Mild glenoh umeral degene rative change with persis tent hetero geneou s fluid signal throug hout the glenoh umeral joint, compat ible with synovi tis. I, Ila Quick ra, MD, have review ed the images and report and concur with the chalo nt, Tiffanie barclay, kirt frost. Electr onical ly Signed By: Ila Quick ra, MD [email or web address] [facility] ([facility]) [address], [place], [address], 12/24/2020 15:00:05 01/14/20 21 12/31/2020 aspir ation shoul jane-l eft Fin al Report EXAM#: [id number] PROCED URE: DPC 0113 ASPIRA TION SHOULD ER-LEF T Dec 31 2020 11:15A M CLINIC AL INDICA TION: left should er fx eval for sepsis Proced ure: Left should er aspira tion under fluoro scopic guidan ce. Clinic al indica tions: Should er pain with report ed joint effusi on and histor y of previo us surger y. TECHNI QUE: Writte n, inform ed consen t is obtain ed. Left should er is preppe d and draped in a steril e fashio n and skin and subcut aneous tissue s are infilt rated with 1% lidoca ine admixe d with bicarb jacklyn. Under fluoro scopic guidan ce, a 20-gau ge needle is advanc ed into the glenoh umeral joint capsul e and 0.2 cc of clear yellow synovi al fluid is aspira toby and submit toby for labora tory analys is. No additi onal fluid could be obtain ed. FINDIN GS: Spot radiog raphs confir m locali zation . 3 C-arm fluoro scopic spot films are obtain ed and archiv ed to the patien t's perman ent record . IMPRES JESSIE: Left should er aspira tion under fluoro scopic guidan ce with specim en for labora tory analys is. Fluoro scopy time less than 0.1 minute s NUMBER OF IMAGES : 3+DOSE Report ed by : CULLEN OSORIO M.D. On: Dec 31 2020 3:42P Signed by: JO Camacho, CULLEN Zhou On: Dec 31 2020 3:45P [email or web address] [facility] [address] [place], [address], 01/13/2021 14:01:07 01/14/20 21 12/31/2020 aspir ation shoul jane-l eft Fin al Report EXAM#: [id number] PROCED URE: DPC 0113 ASPIRA TION SHOULD ER-LEF T Dec 31 2020 11:15A M CLINIC AL INDICA TION: left should er fx eval for sepsis Proced ure: Left should er aspira tion under fluoro scopic guidan ce. Clinic al indica tions: Should er pain with report ed joint effusi on and histor y of previo us surger y. TECHNI QUE: Writte n, inform ed consen t is obtain ed. Left should er is preppe d and draped in a steril e fashio n and skin and subcut aneous tissue s are infilt rated with 1% lidoca ine admixe d with bicarb jacklyn. Under fluoro scopic guidan ce, a 20-gau ge needle is advanc ed into the glenoh umeral joint capsul e and 0.2 cc of clear yellow synovi al fluid is aspira toby and submit toby for labora tory analys is. No additi onal fluid could be obtain ed. FINDIN GS: Spot radiog raphs confir m locali zation . 3 C-arm fluoro scopic spot films are obtain ed and archiv ed to the thu [facility] ent record . IMPRES JESSIE: Left should er aspira tion under fluoro scopic guidan ce with specim en for simonea nicole analys is. Fluoro scopy time less than 0.1 minute s NUMBER OF IMAGES : 3+DOSE Report ed by : CULLEN OSORIO M.D. On: Dec 31 2020 3:42P Signed by: JO Camacho, CULLEN Zhou On: Dec 31 2020 3:45P [email or web address] [facility] [address] [facility], [place], [address], 01/13/2021 14:01:07 Result Notes Documentation Provider Name and Address Organization Details Recorded Time Xr, Shoulder : [email or web address] [id number] Yessenia Cheung [place], [place] - [facility] 12/11/2020 14:18:02 Mri, Shoulder, W/o Contrast : [facility] Accession Number: [id number] Patient Name: Pari Gómez Date of : 1950 Date of Exam: 12-16-2020 Referring Physician: Branden Harrington [facility] [address] [place] [address] Exam: MR Shoulder (C-) CPT 80354 - Left Room Description: [facility] Espr 2 1.5 MRI SHOULDER LEFT WITHOUT CONTRAST History: Left shoulder pain for 3 years worsened by activity. History of subacromial decompression, distal clavicle excision, glenohumeral debridement, biceps tendonesis, subscapularis and supraspinatus tendon repair on 01/02/2020, with removal of a dislodged anchor on 10/05/2020. Technique: MRI of the shoulder was performed without intravenous contrast. Comparison: 09/26/2020. FINDINGS: Rotator cuff: Unchanged intermediate T2 signal throughout distal supraspinatus and infraspinatus tendons, and increased intermediate T2 signal through the distal subscapularis tendon, which may be a combination of tendinopathy and postoperative change. There is a 2 mm partial-thickness bursal-sided tear of the subscapularis tendon (series 3 image 12). Intact teres minor. Rotator cuff muscle bulk appears maintained. Glenoid labrum and biceps tendon: Irregularity/fraying of superior labrum, which may be due to degenerative tearing, unchanged. Status post biceps tendonesis. Articular cartilage and Bone: New acromial fracture with callus formation and surrounding mild marrow edema. Status post distal clavicular excision and subacromial decompression. There is subchondral marrow edema in the anteroinferior glenoid with mild overlying chondral surface irregularity. No focal chondral defects are seen on the humeral head. Persistent heterogeneous signal in the joint fluid throughout the glenohumeral joint and extending into the subscapularis recess, compatible with synovitis. IMPRESSION: 1. Subacute nondisplaced acromial fracture. 2. No evidence of recurrent full-thickness rotator cuff tear. Focal partial-thickness bursal-sided subscapularis tendon tear. 3. Mild glenohumeral degenerative change with persistent heterogeneous fluid signal throughout the glenohumeral joint, compatible with synovitis. I, Ila Ramos MD, have reviewed the images and report and concur with the resident, Lanre Otts, findings. Electronically Signed By: Ila HARRINGTON MD [address] [place] [address], [phone] 12/24/2020 15:00:05 Procedures Surgical History Date Name Laterality Status Provider Name and Address Organization Details Recorded Time 9 Orthopaedic Surgery completed Randee Barriosler [facility] 02/13/2019 10:47:06 Imaging Results None recorded. Procedure Notes None recorded. Medical Equipment None Reported. Allergies Allergen ID Allergen Name Allergen Category Reaction Reaction Severity Criticality Documentation Date Start Date Code Code System Note Provider Name and Address Organization Details Recorded Time 768056 Humira medicatio n rash Not available Not available 10/10/2018 46517 4 RxNorm Randee Sivakumar martins [facility] 9 08:30:15 [id number] Enbrel medicatio n hives Not available Not available 10/10/2018 58054 1 RxNorm Randee Barrioslauren martins [facility] 9 08:30:36 [id number] kiwi fruit extract food anaphylax is Not available Not available 10/10/2018 16747 01 RxNorm Randee Shaver [facility], [place] - [facility] 9 08:30:48 Medications Name Sig Start Date Stop Date Status Note LastModified by Organization Details LastModified Time losartan 50 mg tablet TAKE ONE TABLET BY MOUTH EVERY DAY 12/11 completed Not Available Not Available Not Available prednisone 10 mg tablet Take 1 tablet every day by oral route. active Not Available Not Available No t Available doxycycline hyclate 50 mg capsule TAKE ONE CAPSULE BY MOUTH TWICE A DAY 12/11 completed Not Available Not Available Not Available prednisone 5 mg tablet TAKE 2 TO 3 TABLETS BY MOUTH DAILY DIRECTED WITH FOOD active Not Available Not Available No t Available amlodipine 5 mg tablet TAKE ONE TABLET BY MOUTH EVERY DAY active Not Available Not Available No t Available tramadol 50 mg tablet TAKE TWO TABLETS BY MOUTH EVERY 8 HOURS NEEDED FOR PAIN active Not Available Not Available No t Available ketorolac 0.5 % eye drops INSTILL ONE DROP INTO OPERATIVE EYE TWO TIMES A DAY STARTING AFTER SURGERY 02-18-202012/11 completed Not Available Not Available Not Available prednisone 2.5 mg tablet Take 2 tablets every day by oral route. 12/11 completed Not Available Not Available Not Available simvastatin 20 mg tablet TAKE ONE TABLET BY MOUTH DAILY AT BEDTIME active Not Available Not Available No t Available erythromyci n 5 mg/gram (0.5 %) eye ointment APPLY LIBERALLY TO LEFT AND RIGHT LOWER LID THREE TIMES A DAY FOR 14 DAYS 12/11 completed Not Available Not Available Not Available losartan 25 mg tablet Take 1 tablet every day by oral route. 12/11 completed Not Available Not Available Not Available hydrochloro thiazide 25 mg tablet TAKE ONE TABLET BY MOUTH EVERY DAY 12/11 completed Not Available Not Available Not Available losartan 100 mg tablet Take 1 tablet every day by oral route. active Not Available Not Available No t Available doxycycline hyclate 100 mg tablet TAKE 1 TABLET BY MOUTH TWICE A DAY FOR 14 DAYS 12/11 completed Not Available Not Available Not Available naproxen 500 mg tablet TAKE 1 TABLET BY MOUTH TWO TIMES A DAY WITH FOOD FOR 5 DAYS BEGINNING THE EVENING OF 10/15. STOP IF STOMACH DISCOMFOR T 12/11 completed Not Available Not Available Not Available oxycodone 5 mg tablet TAKE 1 TABLET BY MOUTH EVERY 4 HOURS NEEDED FOR PAIN DIRECTED (DO NOT DRIVE WHILE ON THIS MEDICATIO N) 12/11 completed Not Available Not Available Not Available escitalopra m 10 mg tablet TAKE 1 TABLET BY MOUTH EVERY DAY 12/11 completed Not Available Not Available Not Available hydrochloro thiazide 12.5 mg tablet TAKE ONE TABLET BY MOUTH EVERY DAY active Not Available Not Available No t Available Fluzone High-Dose 2019-20 (PF) 180 mcg/0.5 mL intramuscul ar syringe ADM 0.5ML IM UTD 12/11 completed Not Available Not Available Not Available Vitals Date Recorded Body height Body mass index (BMI) Body weight Provider Name and Address Organization Details Last Updated DateTime 12/11/2020 160.02 cm 24.4 kg/m2 69868.75 g Alyce Kong [facility] 12/11/2020 13:09:35 Date Recorded Body height Body mass index (BMI) Body weight Provider Name and Address Organization Details Last Updated DateTime 12/22/2020 160.02 cm 24.4 kg/m2 04349.75 g Zain Maldonado [facility] 12/22/2020 10:23:18 Date Recorded Body height Body mass index (BMI) Body weight Provider Name and Address Organization Details Last Updated DateTime 01/09/2019 160.02 cm 25.2 kg/m2 34271.12 g ADELA HEALY MD [address] [place] [address], [phone] [facility] 01/09/2019 10:16:17 Date Recorded Body height Body mass index (BMI) Body weight Provider Name and Address Organization Details Last Updated DateTime 02/13/2019 160.02 cm 24.8 kg/m2 20837.93 g Randee Shaver [facility] 02/13/2019 10:46:05 Date Recorded Body height Body mass index (BMI) Body weight Provider Name and Address Organization Details Last Updated DateTime 03/05/2019 160.02 cm 24.8 kg/m2 88223.93 g ADELA HEALY MD [address] [place] [address], [phone] [place] [address] [facility] 03/05/2019 10:24:31 Social History Question Answer Notes LastModified by Organizat ion Details LastModified Time Tobacco Smoking Status Never Smoker Randee Shaver [facility] [place] [facility] [place] [facility] 10/10/2018 08:31:11 Auto Related Injury? No Information not available 12/22/2020 Have You Had Cortisone? Yes Information not available 10/10/2018 What Was The Date Of Your Most Recent Tobacco Screening? 10/10/2018 Information not available 12/22/2020 What Types Of Sporting Activities Do You Participate In? Walking Information not available 10/10/2018 Work Related Injury? No Information not available 12/22/2020 Sex: Unknown Functional Status Question Answer Note LastModified by Organizat ion Details LastModified Time What is your level of alcohol consumption? Moderate 2 per week Information not available 10/10/2018 Do you or have you ever used smokeless tobacco? 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 Never used electronic cigarettes Information not available 02/13/2019 What is your exercise level? Occasional Information not available 10/10/2018 Mental Status None recorded. Family History Relationship Description Onset Age of this Age Resolved Age Notes LastModified by Organization Details LastModified Time Father No current problems or disability Not available 10/10 08:31:01 Mother No current problems or disability Not available 10/10 08:31:01 Medical History Condition Response Blood Clots / Phlebitis N HIV or AIDS N Heart Problems N High Blood Pressure Y Depression or Anxiety N Irregular Heartbeat N MRSA N Emphysema / Chronic Bronchitis N Any Other Significant Medical Issues N Reaction to General/Local Anesthesia N Weight Gain / Loss N Hepatitis / Jaundice N Kidney / Bladder Infections N Diabetes N Bleeding Disorder N Hearing Loss N Angina, Heart Failure or Attack N Night Sweats N Seizures / Epilepsy N Osteoarthritis / Rheumatoid arthritis / Other Y Cancer N Stroke N Chemical Dependency / Alcoholism N Ulcer / Stomach Bleeding / Indigestion N Visual Loss or Glaucoma N Thyroid Disorder N Psoriasis / Skin Rash N Heart Disease N Pulmonary Embolism N Asthma / Shortness of Breath / Sleep Gym Supervisor ea (please specify) N Gynecological HistoryNo gynecological history recorded. Obstetrics History GPAL:G 0 P 0 0 0 0 Immunizations Vaccine Type Date Status Note Provider Nam e and Address Organization Details Recorded Time SARS-COV-2 (COVID-19) vaccine, UNSPECIFIED 05/23/2020 completed Alyce martins [facility] 12/11/2020 13:11:52 SARS-COV-2 (COVID-19) vaccine, UNSPECIFIED 06/13/2020 completed Alyce martins [facility] 12/11/2020 13:11:59 Past Encounters Encounter ID Performer Location Encounter Start Date Encounter Closed Date Diagnosis/Indication Diagnosis SNOMED-CT Code Diagnosis ICD10 Code Diagnosis Note [id number] ADELA HEALY MD [facility] Office [address] [place] [id number] 10/10/2018 07:54:28 10/10/2018 09:18:58 Rheumatoid arthritis 73131336 M06.9 Rupture of extensor tendons of hand AND/OR wrist 036701178 M66.241 [id number] ADELA HEALY MD [facility] Office [address] [place] [id number] 01/09/2019 10:12:03 01/09/2019 11:39:54 Rheumatoid arthritis 49713336 M06.9 possible nonunion of wrist fusion Rupture of extensor tendons of hand AND/OR wrist 274694109 M66.241 EDM right small finger extensor Instabilit y of joint of right wrist 0593876605 4285895 M25.331 Distal ulna s/p Darrach procedure [id number] ADELA HEALY MD [facility] Office [address] [place] [id number] 1 02/13/2019 10:01:03 02/13/2019 11:33:15 Extensor tenosynovitis of wrist 138414131 M65.839 Subluxatio n of tendon, wrist or hand 536318432 S63.002D Seropositi ve rheumatoid arthritis 462591361 M05.9 Mechanical complication of internal orthopedic device, implant AND/OR graft 3844192 T84.398D [id number] ADELA HEALY MD [facility] Office [address] [phone] 03/05/2019 10:17:04 03/05/2019 10:49:31 Extensor tenosynovitis of wrist 036549667 M65.839 Subluxatio n of tendon, wrist or hand 575162609 S63.002D Seropositi ve rheumatoid arthritis 473286771 M05.9 Mechanical complication of internal orthopedic device, implant AND/OR graft 4280536 T84.398D [id number] BRANDEN HARRINGTON MD [address] [phone] 12/11/2020 12:36:16 12/11/2020 13:51:23 Rupture of rotator cuff of left shoulder 4941676886 9884161 M75.102 Myofascial pain 20971870 9 M79.18 M79.10 [id number] BRANDEN HARRINGTON MD [address] [address] 12/22/2020 10:12:28 12/22/2020 11:21:58 Closed fracture of acromial process of left scapula 6409437504 4990179 S42.122A [facility] of [facility] 68777686 M25.512 Health Concerns Section Related Observation LastModified by Organization Detai ls LastModified Time None Recorded Concern Status LastModified by Organization Details LastModified Time None Recorded Advance Directives Directive None Recorded Payers Insurance Date Sequence Insurance Name Policy Number Policy Mason Covered Member ID Mason Member ID Guarantor Name 12/21/2020 1 [place] [employer] Pari Dalia [id number] Kayy Rhonda Gómez 12/21/2020 2 [place]) [id number] Minal Winkler Dalia [id number] Kayy Rhonda Gómez 12/21/2020 [employer] - SPECIALITY CLAIMS (MEDICARE DME REGION A) Pari Dalia [id number] 8 Kayy Rhonda Gómez Notes Date Note Type Note Provider Name and Address Organization Details Recorded Time 01/09/2019 text/html The patient is s een today for re evaluation of R hand stiffness, dorsal forearm swelling, and limited small/ring finger extension. She underwent surgery in Jan 2018 for total wrist fusion with dorsal plating and distal ulna excision. She has a long standing history of RA Her admissions rn gave her PIP cortisone injection on the left last week in the ring, long, and index fingers on the left. She does complain of increased swelling volarly and inability to make a fist. Surgery was perfromed by Dr. Urban [facility]. Past treatments have included: activity modification, NSAIDs, splinting, therapy. Imaging/tests performed: radiographs. Current associated signs and symptoms include: minimal wrist pain, stiffness in hand with particularly limited extension for finger, difficulty with wardrobe coordinator and no regular paresthesias. No prior history of trauma is noted. ADELA HEALY MD [address] [place] [address], [phone], [facility] 01/09/2019 12:35:10 02/13/2019 text/html The patient is s een for evaluation s/p right wrist tenosynovectomies for extensors, retinaculum reconstruction for 4th compartment and hardware removal. She has been in a splint. Pain has been improving. No new paresthesias. No interval medical problems are noted. ADELA HEALY MD [address] [place] [address], [phone], [facility] 02/13/2019 13:20:10 03/05/2019 text/html The patient is s een for re-evaluation s/p right wrist tenosynovectomies for extensors, retinaculum reconstruction for 4th compartment and hardware removal. She has been improving with regard to finger ROM and swelling. Pain also less. No new paresthesias. She is with her . No interval medical problems are noted. ADELA HEALY MD [address] [place] [address], [phone], [facility] 03/05/2019 11:53:19 12/11/2020 text/html HISTORY: Kayy is a pleasant 70-year-old female, who presents for evaluation of her left shoulder. She notes that she has had left shoulder pain for several years. She was previously diagnosed with a rotator cuff tear and in December,, underwent an arthroscopic rotator cuff repair and biceps tenodesis. Unfortunately, she had persistent pain in the shoulder and repeat MRI demonstrated displacement of one of the anchors. She underwent revision surgery back in Sep, 2020 to remove the anchor. According to Kayy this was a more complicated surgery than anticipated and she was told by the surgeon that she may have re-tore the rotator cuff in the process of getting the anchor out. Since then she has struggled with pain and difficulty in function. She did physical therapy following the surgery, which helped initially however it only helped to a point. She notes a fairly significant amount of pain really over the trapezius and posterior scapula as well as the superior and lateral aspect of the shoulder. This pain is significantly exacerbated by attempted overhead activity, dressing, undressing, reaching across her body, driving, combing her hair and pain at night, which does interfere with her sleep. She denies any numbness or tingling in the left upper extremity. She currently rates her pain as a 5/10, which can be worse with certain activity. Her subjective shoulder value is 60% of normal. She has been taking Tylenol for pain, which does help. She had a prior injection several years ago, however, nothing after her most recent surgery. She did one month of physical therapy after the surgery in Sep, 2020, which helped at first, however, subsequently plateaued. She reports allergies to Humira and Enbrel. She has a notable history of rheumatoid arthritis. She is not a smoker. BRANDEN HARRINGTON MD [address] [place] [address], [phone], [facility] 12/15/2020 09:57:39 12/22/2020 text/html HISTORY: Kayy is a pleasant 70-year-old female, who returns to clinic today to follow up on her left shoulder. To briefly review, she underwent left shoulder rotator cuff repair back in December,. Unfortunately this was complicated by persistent postoperative pain and subsequent imaging demonstrated an anchor pulled out laterally. She underwent arthroscopic surgery less than three months ago on 10/04/20 where the anchor was removed. Unfortunately, she has had persistent pain since that surgery. She notes she initially did well for the first four or five weeks, however, after that had significantly worsening pain in the shoulder. When I last saw her, I asked her to obtain a new MRI to evaluate the shoulder and she presents today to follow up on that. Overall she notes that she still has persistent pain in the shoulder. This is worse with reaching, lifting, and pulling motions. She also notes soreness in her neck and posterior aspect of the shoulder, which is worse at the end of the day. BRANDEN HARRINGTON MD [address] [place] [address], [phone], [facility] [place] [facility] 12/25/2020 12:45:28 OBGyn Episode No OBEpisode recorded.
--- OUTSIDE RECORDS SUMMARY | 2024-12-03 14:17 | XMS_ITS | Clinical Summary ---
Author Organization [facility] Address [address] [place] [address] Care Team Providers Care Maintenance And Custodian Supervisor Name Role Phone Maddy Segovia MD Primary Care Provider [phone] Social History Tobacco Use Types Packs/Day Years Used Date Smoking Tobacco: Never Assessed Comments Unknown Sex and Gender Information Value Date Recorded Sex Assigned at Not on file Legal Sex Female 10:30 AM EDT Gender Identity Not on file Sexual Orientation Not on file Plan of Treatment Health Maintenance Due Date Last Done Comments Hepatitis C Virus Screening 1950 DTaP/Tdap/Td Vaccines (1 - Tdap) 11/02/1971 Mammogram 1992 Colonoscopy 1997 Pneumococcal Vaccines 50+ (1 of 1 - PCV) 2002 Zoster (Shingles) Vaccine (1 of 2) 2002 DXA Bone Density (Females,Ag es 65 and older) 2017 COVID-19 Vaccine ( - 2023-2 5 season) 2024 Influenza Vaccine 12/21/2024 RSV Vaccine 60 years and old er and Patients (1 - 1-dose 75+ series) 11/02/2027 Hepatitis B Vaccines Aged Out No long er eligible based on patient's age to complete this topic Insurance [facility] MEDICARE BLUE CROSS MGD MEDICARE OUT OF NETWORK Care Teams Maintenance And Custodian Supervisor Relationship Specialty Start Date End Date Maddy Segovia MD [address] [place] [phone] PCP - General Internal Medicine 02/03/23
--- OUTSIDE RECORDS SUMMARY | 2024-12-03 14:18 | XMS_ITS | Clinical Summary ---
Author Organization [facility] Address [address] [place] [address] Care Team Providers Care Warehouse Incentive Selector Name Role Phone Nicko Garcia MD Primary Care Provider [phone] Allergies Active Allergy Reactions Criticality Noted Date Comments Adalimumab Rash Low 02/18/2021 Etanercept Hives 02/18/2021 Kiwi Anaphylaxis High 02/18/2021 Upadacitinib Hives Medium 03/25/2021 Facial swelling - pcp note Medications Medication Sig Dispensed Refills Start Date End Date Status amLODIPine (NORVASC) tablet 5 mg TAKE ONE TABLET BY MOUTH EVERY DAY 0 12/24/2020 Active hydroCHLOROthiazide (HYDRODIURIL) tablet 25 mg TAKE ONE TABLET BY MOUTH EVERY DAY 0 11/23/2020 Active losartan (COZAAR) tablet 25 mg 100 mg daily. 0 Active simvastatin (ZOCOR) tablet 20 mg simvastatin 20 mg tablet TAKE ONE TABLET BY MOUTH DAILY AT BEDTIME 0 Active predniSONE (DELTASONE) 5 mg tablet Take 1 tablet by mouth 2 (two) times a day. 0 03/06/2021 Active vitamin D3 (VITAMIN D3) 25 MCG (1000 UT) tablet Take 1,000 Units by mouth daily. 0 Active Ascorbic Acid (Vitamin C) 500 MG CAPS Take by mouth. 0 Active carvedilol (COREG) 3.125 MG tablet Take by mouth 2 (two) times a day with meals. 0 Active oxyCODONE (ROXICODONE) 5 MG immediate release tablet Take 1 tablet (5 mg total) by mouth every 4 (four) hours as needed for pain. 40 tablet 0 03/27/2021 Active acetaminophen (TYLENOL EXTRA STRENGTH) 500 MG tablet Take 2 tablets (1,000 mg total) by mouth every 8 (eight) hours. 30 tablet 0 03/27/2021 Active meloxicam (MOBIC) 15 MG tablet Take 1 tablet (15 mg total) by mouth daily. 14 tablet 0 03/27/2021 Active methocarbamol (ROBAXIN) 750 MG tablet Take 1 tablet (750 mg total) by mouth every 6 (six) hours as needed. 56 tablet 0 03/27/2021 Active senna-docusate (PERICOLACE) 8.6-50 MG Take 1 tablet by mouth 2 (two) times a day. 14 tablet 0 03/27/2021 Active aspirin EC 81 MG tablet Take 81 mg by mouth daily. 0 Active amoxicillin (AMOXIL) 500 MG tablet Take 4 tabs 1 hour prior to dental procedure 20 tablet 3 04/03/2021 Active oxyCODONE (ROXICODONE) 5 MG immediate release tablet Take 1 tab every 6 hours as needed for pain 50 tablet 0 04/14/2021 Active amoxicillin (AMOXIL) 500 MG tablet Take 4 tabs (2,000 mg) one hour before any dental work 20 tablet 2 04/14/2021 Active traMADol (ULTRAM) 50 MG tablet Take 1 tablet every 12 hours as needed for pain 60 tablet 0 10/16/2021 Active Active Problems No known active problems Immunizations Name Administration Dates Next Due Covid-19 (SHIFT) Dilution Required 01/23/2021,0 06/23/2020,06/02/2020 Social History Tobacco Use Types Packs/Day Years Used Date Smoking Tobacco: Former Smokeless Tobacco: Never Alcohol Use Standard Drinks/Week Comments Yes 0 (1 standard drink = 0.6 oz pur e alcohol) 1-2 monthly Sex and Gender Information Value Date Recorded Sex Assigned at Female 01/13/2021 11:49 AM EDT Gender Identity Not on file Sexual Orientation Not on file Job Start Date Occupation Industry Not on file Not on file Not on file Last Filed Vital Signs Vital Sign Reading Time Taken Comments Blood Pressure 147/76 03/27/2021 8:20 AM EDT Pulse 62 03/27/2021 8:20 AM EDT Temperature 37 C (98.6 F) 03/27/2021 8:20 AM EDT Respiratory Rate 16 03/27/2021 8:20 AM EDT Oxygen Saturation 99% 03/27/2021 8:20 AM EDT Inhaled Oxygen Concentration - - Weight 62.6 kg (138 lb) 03/26/2021 8:45 AM EDT Height 160 cm (5' 3 ) 03/26/2021 8:45 AM EDT Body Mass Index 24.45 03/26/2021 8:45 AM EDT Plan of Treatment Health Maintenance Due Date Last Done Comments Hepatitis C Screening 1950 Depression Screening 1964 Preventative Health Evaluation 1970 DTap / Tdap / Td (1 - Tdap) 11/02/1971 Colon Cancer Screening (Colonoscopy) 1997 Breast Cancer Screening (Mammogram) 2002 Shingrix-Zoster Vaccine (1 of 2) 2002 Fall Risk Assessment 2017 Osteoporosis Screening (DEXA Scan) 2017 Pneumococcal Vaccine (1 of 1 - PCV) 2017 COVID-19 Vaccine ( season) 2024 01/23/2021, 06/23/2020, 06/13/2020, Additional history exists Influenza Vaccine (#1) 2025 RSV Adult > 60+ Yrs or (1 - 1-dose 75+ series) 11/02/2027 Hepatitis B Vaccines Aged Out No long er eligible based on patient's age to complete this topic RSV Ped < 20 months Aged Out No longe r eligible based on patient's age to complete this topic Medical Devices Implanted Type Area Manager Technical Device Identifier Shelf Expiration Date Model / Serial / Lot Cement Bone Surg Simplex Radiopq Stry-Howm [id number] - [id number] Implanted:Qty: 1 on 03/26/2021 by Alexander Babb MD at [facility] Left: Knee [employer] [id number] 03/22/2022 6191-1-010 / / [id number] Cement Bone Surg Simplex Radiopq Stry-Howm [id number] - [id number] Implanted:Qty: 1 on 03/26/2021 by Alexander Babb MD at [facility] Left: Knee [employer] [id number] 03/22/2022 6191-1-010 / / [id number] Knee Baseplt Tib Cmnt Sz4 Stry-Howm [id number] - [id number] Implanted:Qty: 1 on 03/26/2021 by Alexander Babb MD at [facility] Left: Knee [employer] [id number] 11/24/2025 5520-B-400 / / [id number] Knee Fem Triathlon Cr 3-Lt Stry-Howm [id number] 199 - [id number] Implanted:Qty: 1 on 03/26/2021 by Alexander Babb MD at [facility] Left: Knee [employer] [id number] 01/29/2026 5515-F-301 / / [id number] Knee Tib Insrt Ps-X3 [id number] Stry-Howm [id number] - [id number] Implanted:Qty: 1 on 03/26/2021 by Alexander Babb MD at [facility] Left: Knee [employer] [id number] 08/04/2025 5532-G-409 / / [id number] Knee Patella Asym X3 29x9mm Stry-Howm [id number] - [id number] Implanted:Qty: 1 on 03/26/2021 by Alexander Babb MD at [facility] Left: Knee [employer] [id number] 10/01/2025 5551-G-299 / / [id number] Peg Fix Femoral Distal Stry-Howm [id number] - [id number] Implanted:Qty: 1 on 03/26/2021 by Alexander Babb MD at [facility] Left: Knee [employer] [id number] 06/20/2025 5575-X-000 / / [id number] Advance Directives For more information, please contact: [phone] Latest Code Status on File Code Status Date Activated Date Inactivated Comments Full Code 03/26/2021 2:06 PM 03/27/2021 5:35 PM This code status was ascertained in the following way: Per prior documentation . Code Status History Code Status Date Activated Date Inactivated Comments Full Code 03/26/2021 8:33 AM 03/26/2021 2:06 PM This code status was ascertained in the following way: discussion with patient . Care Teams Warehouse Incentive Selector Relationship Specialty Start Date End Date Nicko Garcia MD [address] [place] [address] [address] [place] [address] PCP - General Crankshaft Straightener 01/13/21
== END 2024-12-03 13:30 | disposition home or self-care (01) ==
LOC: HO.HOS 13:15
PROVIDERS: PCP Internal Medicine; Visit Provider Orthopaedic Surgery
DX: M54.2 Cervicalgia (principal)
CPT/HCPCS: 99213; G2211

== ENCOUNTER → 2024-12-03 13:14 | Outpatient (BNVA) | payer MEDICARE, SELFPAY | PROVIDERS: PCP Internal Medicine; Visit Provider Orthopaedic Surgery | DX: M54.2 Cervicalgia (principal); M79.602 Pain in left arm; R53.1 Weakness | CPT/HCPCS: 99212 ==

== ENCOUNTER → 2024-12-13 19:09 | Outpatient (BNV) | payer MEDICARE, SELFPAY | PROVIDERS: PCP Internal Medicine; Visit Provider Specialist | DX: M48.02 Spinal stenosis, cervical region (principal) | CPT/HCPCS: 72141 ==

== ENCOUNTER 2024-12-13 19:10 | Outpatient (REF) | payer MEDICARE, SELFPAY ==
--- NOTE | ~2024-12-13 | MR_ITS ---
CLINICAL HISTORY: M54.2 - Cervicalgia MR cervical spine without gadolinium Comparison: None provided Findings: Vertebral alignment is within normal limits. There is multiple level broad-based degenerative disc bulge and degenerative facet change with significant stenosis at C3-C4 and C4-C5 No acute fractures or pathologic bone lesions. No acute findings on limited view of the intracranial contents. No cervical fluid collections or masses. Cervical cord normal. IMPRESSION: Central canal stenosis from C3 through C5 related to broad-based disc bulge and degenerative facet changes This document has been electronically signed by: Manav Watts MD on 12/15/2024 09:56:54
== END 2024-12-13 19:11 | disposition home or self-care (01) ==
LOC: HO.MRI 19:10
PROVIDERS: PCP Internal Medicine; Visit Provider Orthopaedic Surgery
DX: M54.2 Cervicalgia (principal)
CPT/HCPCS: 72141

== ENCOUNTER 2025-03-06 10:15 | Outpatient (AMB) | payer MEDICARE, SELFPAY ==
--- NOTE | 2025-03-06 10:17 | MHC.OFFVIS ---
Intake Visit Reasons: OV-MRI Review of the cervical spine Intake Note: Minal is a 74 year old female who presents with complaints of progressively worsening neck pain which radiates into her left arm. She describes her pain as sharp in nature. She does have a history of rheumatoid arthritis. She has not had surgery on her neck. Her symptoms have gotten worse over the last year. She also reports intermittent weakness in her left arm. She has failed the last 6 weeks of conservative treatment which have included Tylenol, anti-inflammatory medicines, a home exercise program and physical therapy exercises. The patient did undergo left shoulder arthroscopic surgery on 10/28/2023. She reports mild to moderate intermittent discomfort in her left shoulder as well. Allergies kiwi Allergy (Severe, Verified 03/06/25 10:20) Anaphylaxis enbril Allergy (Intermediate, Uncoded 12/03/24 13:20) Hives humara Allergy (Intermediate, Uncoded 12/03/24 13:20) Hives PFSH Medical History Hx of renal calculi Anemia Rheumatoid arthritis Elevated cholesterol HTN (hypertension) Surgical History Hx of LASIK Hx of colonoscopy History of surgery on right wrist (~2018) S/P MARISABEL-BSO (total abdominal hysterectomy and bilateral salpingo-oophorectomy) (~1990) History of total left knee replacement (TKR) (~03/2022) History of repair of left rotator cuff History of bladder surgery (~03/2023) Social History Household Members: Spouse Housing: [facility] Are you a primary director of patient care to a significant other at home: No Do you presently have visiting nurse or other home services: No Patient Tobacco Use Status: Former Tobacco user Tobacco use type: Cigarette Current occupational status: retired Current occupation: Right hand dominant Physical Exam Neck Other: Cervical spine examination shows pain with range of motion, left-sided paraspinal muscle tenderness, positive Spurling's test Extrem Other: Left shoulder examination shows that the surgical incisions are well healed, no erythema, mild crepitus with range of motion, no instability Assessment & Plan Assessment & Plan (1) Cervical stenosis of spinal canal: Code(s): M48.02 - Spinal stenosis, cervical region Category: Medical Plan Ms. Gómez presents with residual left shoulder pain after undergoing left shoulder arthroscopic surgery due to glenohumeral joint arthritis. The patient wishes to hold off on total shoulder replacement surgery for as long as possible. I agree with this plan. She will continue with her [id number] exercises to prevent stiffness. The patient also has neck pain which radiates into her left arm due to cervical stenosis. I did recommend that the patient follow up with the neurosurgery group here at [facility] for further information regarding her treatment options. A referral was placed. She will contact me prior to that appointment should her symptoms worsen in any way. Feel free to call me at any time should questions regarding her orthopedic management arise. I spent 21 minutes in reviewing the patient's records and imaging studies, seeing the patient and documenting in the medical record. Orders: Referrals Neuro Spine Referral M48.02 - Spinal stenosis, cervical region Coding Level of Care Code Est Pt Level 3 (97561) Complex EM visit Add On G2211 Diagnoses Cervical stenosis of spinal canal M48.02
--- OUTSIDE RECORDS SUMMARY | 2025-03-06 12:08 | XMS_ITS | Clinical Summary ---
Author Organization [facility] Address [address] [place] [id number] Phone Care Team Providers Care Access Developer Name Role Phone Pcp, Unknown Unavailable Unavailable Maddy Summers MD Primary Care Provider [phone] Allergies Active Allergy Reactions Criticality Noted Date Comments Adalimumab Hives,Rash Low 02/18/2021 Etanercept Hives 02/18/2021 Kiwi Anaphylaxis High 02/18/2021 Medications carvedilol (COREG) 3.125 MG tablet Take 1 tablet by mouth 2 (two) times a day. 10/26/2022 Active hydroCHLOROthia zide (HYDRODIURIL) 25 MG tablet Take 1 tablet by mouth every morning. 11/26/2022 Active losartan (COZAAR) 100 MG tablet Take 1 tablet by mouth every morning. 10/26/2022 Active simvastatin (ZOCOR) 20 MG tablet Take 20 mg by mouth nightly at bedtime. at bedtime. 10/25/2022 Active acetaminophen (TYLENOL) 650 MG CR tablet Take 1,300 mg by mouth 2 (two) times a day. Active calcium carbonate (CALCIUM 600) 1,500 mg (600 mg elemental) tablet Take 1,500 mg by mouth 2 (two) times a day with meals. Active ferrous sulfate 325 mg (65 mg qagan tayagungin iron) tablet Take 325 mg by mouth daily with breakfast. Active predniSONE (DELTASONE) 5 MG tablet Take 1 tablet (5 mg total) by mouth daily with breakfast. 90 tablet 1 10/04/2024 Active Active Problems Problem Noted Date Diagnosed Date Rheumatoid arthritis involvi ng multiple sites with positive rheumatoid factor 02/08/2023 Assessment & Plan (10/22/2023 4:17 PM EDT): Seropositive rheumatoid arthritis currently well-controlled on Rinvoq taken every other day. I advised not to stop Rinvoq as that will cause her RA to flare. Reviewed labs that were done recently last week. No need for labs today. Assessment & Plan (05/03/2023 12:35 PM EST): Seropositive RA well-controlled on Rinvoq 3 times a week with no active swelling or synovitis. She no longer has acne as she did with daily Rinvoq. Continue with 3 times a week dosing. I suspect her anemia and fatigue are secondary to poor appetite and caloric intake. Will repeat some labs today to reevaluate her hemoglobin. Encouraged her to increase her daily intake of protein. Ensure adequate hydration. Gave her an intramuscular injection of triamcinolone 80 mg to reduce her joint stiffness as well as stimulate her appetite. Assessment & Plan (02/08/2023 12:59 PM EDT): Seropositive rheumatoid arthritis very well controlled on Rinvoq 3 times a week with no active synovitis or swelling. He complains of increased achiness and fatigue with no clear etiology. She asked for and was given an intramuscular injection of triamcinolone 60 mg which relieves her symptoms for several months. Dr Summers, please fax me a copy of patient's Last rheumatology office note. Primary osteoarthritis involving multiple joints 02/08/2023 Assessment & Plan (10/22/2023 4:18 PM EDT): Osteoarthritis in multiple joints with some stiffness but no swelling. She can continue with Tylenol 650 mg twice a day as needed. Assessment & Plan (05/03/2023 12:36 PM EST): Osteoarthritis in multiple joints with no swelling. She has chronic knee pain and wrist pain even after previous surgeries. She can take Tylenol 650 mg as needed. Assessment & Plan (02/08/2023 12:56 PM EDT): Osteoarthritis in multiple joints with no current swelling. I suggested she use Tylenol 650 mg as needed for pain. Post-traumatic osteoarthritis of multiple joints 02/08/2023 Assessment & Plan (02/08/2023 12:56 PM EDT): She has chronic knee and right wrist pain after undergoing surgery. Hopefully Tylenol 650 mg should work year as well. Encounters Date Type Department Care Team Description 02/18/2025 Refill [facility] [place] [address] [place] [address] Willa Quinn MD, PhD Medication Refill 01/25/2025 Telephone [facility] [address] [place] [address] Unknown, Unknown, MD Follow Up Visit from Last 3 Months Family History Medical History Relation Comments Diabetes Father Diabetes Mother Hypertension Mother Breast cancer Sister 1 Cancer Sister 1 Breast cancer Sister 2 Cancer Sister 2 Relation Status Comments Father Mother Sister 1 Alive Sister 2 Alive Social History Tobacco Use Types Packs/Day Years Used Date Smoking Tobacco: Former Smokeless Tobacco: Never Tobacco Cessation:Counseling Given: Not Answered Alcohol Use Standard Drinks/Week Comments Yes 1 (1 standard drink = 0.6 oz pur e alcohol) Child or Family Care Answer Date Record ed Do you have problems with on e of the following making it difficult for you to work, study, or receive health care? No 01/24/2024 Education Answer Date Recorded Are you interested in more education? Not on tia e 11/30/2022 Are you concerned about learning? Not on file 11/30/2022 No 11/30/2022 No 11/30/2022 Food Answer Date Recorded Within the past 6 months we worried whether our food would run out before we got money to buy more. Never True 01/24/2024 Within the past 6 months the food we bought just didn't last and we didn't have enough money to get more. Never True Residential Stability Answer Date Recor ded What is your housing situation today? I have rachel sing 01/24/2024 How many times have you move d in the past 12 months? Zero (I did not move) 01/24/2024 Paying for Meds Answer Date Recorded Do you have trouble paying for medicines? No 01/24/2024 Paying Utility Bills Answer Date Record ed Do you have trouble paying your heating or elect ricity bill? No 01/24/2024 Transportation Answer Date Recorded Has the lack of transportati on kept you from medical appointments or from getting medications? No 01/24/2024 Digital Access Answer Date Recorded No 01/24/2024 Yes 01/24/2024 Do you have reliable internet access at home? Ye s 01/24/2024 Do you have a device (e.g., phone, tablet, computer) with a working camera? Yes 01/24/2024 Comments Unknown Sex and Gender Information Value Date Recorded Sex Assigned at Not on file Legal Sex Female 11:11 AM EDT Gender Identity Female 04/30/2023 5:05 AM EST Sexual Orientation Not on file Last Filed Vital Signs Vital Sign Reading Time Taken Comments Blood Pressure 132/64 10/04/2024 9:58 AM EDT Pulse 69 10/04/2024 9:58 AM EDT Temperature 36.6 C (97.9 F) 01/30/2024 8:43 AM EDT Respiratory Rate 16 01/03/2023 10:54 AM EDT Oxygen Saturation 99% 10/04/2024 9:58 AM EDT Inhaled Oxygen Concentration - - Weight 58.5 kg (129 lb) 10/04/2024 9:58 AM EDT Height 160 cm (5' 3 ) 01/30/2024 8:43 AM EDT Body Mass Index 22.85 01/30/2024 8:43 AM EDT Plan of Treatment Upcoming Encounters Date Type Department Care Team (Late st Contact Info) Description 03/11/2025 10:00 AM EDT Office Visit [facility] [address] [place] [address] Kellee Templeton, [address] [facility], [address] [place] [address] Health Maintenance Due Date Last Done Comments LIPID PANEL 1952 DEPRESSION SCREENING 1964 SMOKING Hx and SMOKELESS TOBACCO SCREENING 1965 COLOGUARD 1997 COLONOSCOPY 1997 COLORECTAL CANCER SCREENING 1997 FIT TEST 1997 FOBT 1997 SIGMOIDOSCOPY 1997 VIRTUAL COLONOSCOPY 1997 ZOSTER VACCINES (2 of 3) 03/15/2017 01/18/2017 OSTEOPOROSIS SCREENING INITIAL (ONE-TIME) 2017 INFLUENZA VACCINE (#1) 2024 , 04/25/2021, 03/06/2020, Additional history exists COVID-19 VACCINE ( - season) 2025 02/22/2022 POTASSIUM LEVEL 01/29/2025 01/30/2024, 04/22, 01/03/2023 CREATININE LEVEL 10/05/2025 10/05/2024, 01/2024, 05/03/2023, Additional history exists MAMMOGRAM 05/14/2026 05/14/2024, 05/14/2024 RSV VACCINE (1 - 1-dose 75+ series) 11/02/2027 Adult Td,Tdap Booster 06/16/2028 06/16/2018, 018 PNEUMOCOCCAL VACCINES (50+ years) Completed 12/25/2018, 12/12/2017 HEPATITIS C SCREENING Completed 01/03/2023 HEPATITIS A VACCINES Aged Out No long er eligible based on patient's age to complete this topic HIB VACCINES Aged Out No longer eligi ble based on patient's age to complete this topic MENINGOCOCCAL VACCINES (ACWY) Aged Out No longer eligible based on patient's age to complete this topic MENINGOCOCCAL VACCINES (B) Aged Out N o longer eligible based on patient's age to complete this topic Medical Devices Not on file Procedures Procedure Name Priority Date/Time Associated Diagnosis Comments COMPREHENSIVE METABOLIC PANEL Routine 10/05/2024 11:05 AM EDT COMPREHENSIVE METABOLIC PANEL Routine 01/30/2024 10:04 AM EDT Rheumatoid arthritis involving multiple sites with positive rheumatoid factor HEPATITIS C ANTIBODY, QUALITATIVE Routine 01/03/2023 11:49 AM EDT Rheumatoid arthritis involving multiple sites with positive rheumatoid factor Need for hepatitis C screening test from Last 3 Months or Most Recently Relevant to Health Maintenance Results * Comprehensive metabolic panel (10/05/2024 11:05 AM EDT) Only the most recent of2 resultswithin the time period is included. Historical Provider LAB BLOOD ORDERABLES Nica l Result * Hepatitis C antibody, qualitative (01/03/2023 11:49 AM EDT) HCV NON-REACTIV E NON-REACTI VE [facility] Blood 01/03/2023 11:4 9 AM EDT 01/03/2023 11:50 AM EDT Dalton Lamar MD LAB BLOOD ORDERABLES Fi nal Result [facility] [address] [place] [address] from Last 3 Months or Most Recently Relevant to Health Maintenance Insurance [employer] MEDIC[place] P[place] BLUE REPLACEMENT MEDICARE PART A & B [facility] MEDICARE PPO BLUE REPLACEMENT MEDICARE PART A & B [facility] MEDICARE PPO BLUE REPLACEMENT MEDICARE PART A & B Member Subscriber Plan / Payer (Ef fective 2018-Present) Name:Minal Gómez Jo Member ID:[id number] Relation to Subscriber:Self Name:Dalia Magda Subscriber ID:[id number] Payer ID:[id number] Group ID:Not on file Type:Medicare Address: [employer] [address] [facility] MEDICARE PPO BLUE REPLACEMENT MEDICARE PART A & B [facility] MEDICARE PPO BLUE REPLACEMENT MEDICARE PART A & [place] RE[place]AC[place] MEDICARE PART A & B MEDICARE PART A & B [facility] MEDICARE PPO BLUE REPLACEMENT MEDICARE PART A & B MEDICARE PPO BLUE REPLACEMENT MEDICARE PART A & B MEDICARE PPO BLUE REPLACEMENT MEDICARE PART A & B MEDICARE PPO BLUE REPLACEMENT MEDICARE PART A & B [facility] MEDICARE PPO BLUE REPLACEMENT MEDICARE PART A & B [facility] MEDICARE PPO BLUE REPLACEMENT MEDICARE PART A & B MEDICARE PPO BLUE REPLACEMENT MEDICARE PART A & B Member Subscriber Plan / Payer (Ef fective 2018-Present) Name:Minal Gómez Jo Member ID:[id number] Relation to Subscriber:Self Name:Minal Gómez Subscriber ID:[id number] Payer ID:[id number] Group ID:Not on file Type:Medicare Address: [employer] [address] [place] [address] [place] [address] MEDICARE PPO BLUE REPLACEMENT MEDICARE PART A & B [employer] [place] BLUE REPLACEMENT Care Teams Access Developer Relationship Specialty Start Date End Date Maddy Summers MD [address] [place] [phone] PCP - General Internal Medicine 10/04/23 Pcp, Unknown 11/29/22 Additional Source Comments The information contained in this document represents components of the legal health record. It is not the complete legal health record.[facility]
--- OUTSIDE RECORDS SUMMARY | 2025-03-06 12:08 | XMS_ITS | Clinical Summary ---
Author Organization [facility] Address [address] [place] [address] Phone Care Team Providers Care Can Filling And Closing Machine Tender Name Role Phone Maddy Segovia MD Primary Care Provider [phone] Allergies Active Allergy Reactions Criticality Noted Date Comments Adalimumab Hives,Rash Low 02/18/2021 Other Reaction(s): hives and facial swelling Etanercept Hives 02/18/2021 Other Reaction(s): gi upset and ankle swelling Medications simvastatin (ZOCOR) 20 mg tablet Take 1 tablet (20 mg total) by mouth at bedtime. at bedtime Active losartan (COZAAR) 100 mg tablet Take 1 tablet (100 mg total) by mouth 1 (one) time each day. Active carvediloL (COREG) 3.125 mg tablet Take 1 tablet (3.125 mg total) by mouth 2 (two) times a day. Active hydroCHLOROthia zide (HYDRODIURIL) 25 mg tablet Take 1 tablet (25 mg total) by mouth 1 (one) time each day. Active predniSONE (DELTASONE) 5 mg tablet Take 1 tablet (5 mg total) by mouth 1 (one) time each day with breakfast. Active Active Problems Problem Noted Date Diagnosed Date Globus sensation 01/29/2025 Female cystocele 01/28/2025 Hematuria 01/28/2025 Hydronephrosis 01/28/2025 Hypertension 01/28/2025 Iron deficiency anemia 01/28/2025 Osteopenia 01/28/2025 Throat clearing 01/28/2025 Prediabetes 01/28/2025 Pure hypercholesterolemia 01/28/2025 Rheumatoid arthritis (CMS/HCC V24, CMS/[facility] V28) 01/28/2025 Simple renal cyst 01/28/2025 Sensorineural hearing loss 01/28/2025 Post-traumatic osteoarthritis of multiple joints 02/08/2023 Encounters Date Type Department Care Team Description 02/07/2025 Telephone Gastroenterology - [address] [phone] Marla Badillo [place] 02/04/2025 8:22 AM EDT Anesthesia Event [facility] [address] [place] [phone] Edson Vega MD 02/04/2025 7:22 AM EDT - 02/04/2025 11:59 PM EDT Hospital Encounter [facility] [address] [place] [phone] Boyd Watkins MD Decandio, Laura, CRNA Spencer, Mark A, MD Globus sensation; Throat clearing Discharge Disposition: Home or Self Care 01/29/2025 9:20 AM EDT Office Visit Gastroenterology - [address] [phone] Boyd Watkins MD Globus sensation (Primary Dx); Throat clearing 01/29/2025 Telephone Gastroenterology - [address] [phone] Debbie Ramirez MA from Last 3 Months Surgical History Surgery Date Site/Laterality Comments WRIST SURGERY PROCEDURE:WRIST SURGERY CHOLECYSTECTOMY PROCEDURE:CHOLECYSTECTOMY ROTATOR CUFF REPAIR 12/2019 Left PROCEDURE:ROTATOR CUFF REPAIR;COMMENT:08/2020 revision HYSTERECTOMY PROCEDURE:HYSTERECTOMY CYSTOCELE REPAIR PROCEDURE:CYSTOCELE REPAIR CYSTOSCOPY 2014 PROCEDURE:CYSTOSCOPY TOTAL KNEE ARTHROPLASTY 03/26/2021 Left PROCEDURE:TOTAL KNEE ARTHROPLASTY;COMMENT:Procedure: REPLACEMENT TOTAL KNEE; Surgeon: Alexander Babb MD; [facility] Service: Orthopedics; Laterality: Left; JOINT REPLACEMENT PROCEDURE:JOINT REPLACEMENT Medical History Medical History Date Comments Hypertension DX:Hypertension Rheumatoid arthritis (CMS/ C V24, CMS/HCC V28) DX:Rheumatoid arthritis (HCC ) Hyperlipidemia DX:Hyperlipidemi a History of kidney stones DX:Hist ory of kidney stones Current chronic use of systemic steroids DX:Current chronic use of systemic steroids Osteopenia DX:Osteopenia;CO MMENT:pcp note Renal cyst, left DX:Renal cyst, left;COMMENT:Small Anemia DX:Anemia;COMMEN T:with elevated WBC - pcp note Family History Medical History Relation Name Comments Breast cancer Father's Sister Breast cancer Mother's Sister Breast cancer Sister 1 Breast cancer Sister 2 Relation Name Status Comments Father's Sister Alive Mother's Sister Alive Paternal Great-Grandparent Alive Sister 1 Sister 2 Alive Social History Tobacco Use Types Packs/Day Years Used Date Smoking Tobacco: Former Smokeless Tobacco: Never Alcohol Use Standard Drinks/Week Comments Yes 1 (1 standard drink = 0.6 oz pur e alcohol) Interpersonal Safety Answer Date Record ed Physical Abuse Unrecognized value 02/04/2025 Verbal Abuse Unrecognized value 02/04/2025 Comments No Sex and Gender Information Value Date Recorded Sex Assigned at Female 02/04/2025 7:19 AM EDT Legal Sex Female 1:31 PM EST Gender Identity Female 02/04/2025 7:19 AM EDT Sexual Orientation Straight 02/04/2025 7: 19 AM EDT Obstetrics History Para Term AB IAB SAB Ectopic Multiple Livin g Live Births 2 Last Filed Vital Signs Vital Sign Reading Time Taken Comments Blood Pressure 148/76 02/04/2025 8:55 AM EDT Pulse 65 02/04/2025 8:55 AM EDT Temperature 36.6 C (97.9 F) 02/04/2025 7:49 AM EDT Respiratory Rate 18 02/04/2025 8:55 AM EDT Oxygen Saturation 99% 02/04/2025 8:55 AM EDT Inhaled Oxygen Concentration - - Weight 56.7 kg (125 lb) 02/04/2025 7:49 AM EDT Height 160 cm (5' 3 ) 02/04/2025 7:49 AM EDT Body Mass Index 22.14 02/04/2025 7:49 AM EDT Plan of Treatment Health Maintenance Due Date Last Done Comments Zoster Vaccines (2 of 3) 03/15/2017 01/18/2017 Cholesterol Screening (Lipid Panel) 04/30/2022 Medicare Annual Wellness Visit 04/30/2022 Osteoporosis Screening (Bone Density Screening) 04/30/2022 Social Influencers of Health Screening 04/30/2022 Depression Screening 05/23/2024 COVID-19 Vaccine ( season) 2025 03/23/2023, 02/22/2022, 01/23/2021, Additional history exists Influenza Vaccine (#1) 2025 , 02/25/2023, 02/22/2022, Additional history exists Hypertension/CHF/CAD Annual BMP Blood Test 01/29/2025 01/30/2024, 05/03/2023, 01/03/2023 Falls Risk Assessment 02/04/2026 02/04/2025 Breast Cancer Screening 05/14/2026 05/14/20, 05/11/2023, 05/07/2022, Additional history exists RSV Immunization Adult Patients (1 - 1-dose 75+ series) 11/02/2027 Colorectal Cancer Screening: Colonoscopy 04/06/2032 04/06/2022, 03/09/2017, 11/30/2013 DTaP,Tdap,and Td Vaccines (3 - Td or Tdap) 02/25/2033 02/25/2023, 12/12/2017 Hepatitis C Screening Completed 01/03/2023 Pneumococcal Vaccine: 50+ Years Completed 03/23/2023, 12/25/2018, 12/12/2017 HIB Vaccines Aged Out No longer eligi ble based on patient's age to complete this topic HPV Vaccines Aged Out No longer eligi ble based on patient's age to complete this topic Hepatitis A Vaccines Aged Out No long er eligible based on patient's age to complete this topic Hepatitis B Vaccines Aged Out No long er eligible based on patient's age to complete this topic IPV Vaccines Aged Out No longer eligi ble based on patient's age to complete this topic MMR Vaccines Aged Out No longer eligi ble based on patient's age to complete this topic Meningococcal ACWY Vaccine Aged Out N o longer eligible based on patient's age to complete this topic Meningococcal B Vaccine Aged Out No l onger eligible based on patient's age to complete this topic RSV Immunization Patients Under 20 months Aged Out No longer eligible based on patient's age to complete this topic Varicella Vaccines Aged Out No longer eligible based on patient's age to complete this topic Medical Devices Implanted Type Area Employment Director Device Identifier Shelf Expiration Date Model / Serial / Lot Cement Bone Surg Simplex Radiopq Stry-Howm [id number] Implanted:Qty: 1 on 03/26/2021 by Alexander Babb MD Left: Knee [employer] [id number] 03/22/2022 6191- / / [id number] Cement Bone Surg Simplex Radiopq Stry-Howm [id number] [id number] Implanted:Qty: 1 on 03/26/2021 by Alexander Babb MD Left: Knee [employer] [id number] 03/22/2022 6191- / / [id number] Knee Baseplt Tib Cmnt Sz4 Stry-Howm 5690-[id number] 190 Implanted:Qty: 1 on 03/26/2021 by Alexander Babb MD Left: Knee [employer] [id number] 11/24/2025 5520-B-400 / / [id number] Knee Fem Triathlon Cr 3-Lt Stry-Howm 5982-[id number] 199 Implanted:Qty: 1 on 03/26/2021 by Alexander Babb MD Left: Knee [employer] [id number] 01/29/2026 5515-F-301 / / [id number] Knee Tib Insrt Ps-X3 [id number] Stry-Howm [id number]-[id number] Implanted:Qty: 1 on 03/26/2021 by Alexander Babb MD Left: Knee [employer] [id number] 08/04/2025 5532-G-409 / / [id number] Knee Patella Asym X3 29x9mm Stry-Howm [id number] Implanted:Qty: 1 on 03/26/2021 by Alexander Babb MD Left: Knee [employer] [id number] 10/01/2025 5551-G-299 / / [id number] Peg Fix Femoral Distal Stry-Howm 4678-[id number] Implanted:Qty: 1 on 03/26/2021 by Alexander Babb MD Left: Knee [employer] [id number] 06/20/2025 5575-X-000 / / [id number] Procedures Procedure Name Priority Date/Time Associated Diagnosis Comments EGD Routine 02/04/2025 8:34 AM EDT Globus sensation Throat clearing TISSUE EXAM Routine 02/04/2025 8:29 AM EDT Globus sensation Throat clearing MG MAMMO DIGITAL SCREENING W RODERICK BILAT Routine 05/14/2024 9:40 AM EST Encounter for screening mammogram for breast cancer COLONOSCOPY Routine 04/06/2022 11:32 AM EST from Last 3 Months or Most Recently Relevant to Health Maintenance Results * EGD Anesthesia - MAC; [facility] ENDOSCOPY (02/04/2025 8:34 AM EDT) Anatomical Region Laterality Modality Other 02/04/2025 8:25 AM EDT Impressions 02/04/2025 8:34 AM EDT - Normal mid esophagus. Biopsied. - Normal esophagus. - Normal hypopharynx. - Normal stomach. - Normal examined duodenum. Recommendation: - Await pathology results. - Continue present medications. Narrative 02/04/2025 8:34 AM EDT [facility] GI Patient Name: Minal Lopez Procedure Date: 02/04/2025 8:25 AM Date of : 1950 Age: 74 Room: ROOM 14 Gender: Female Note Status: Finalized Attending MD: Boyd Watkins MD, Procedure Date No Time: 02/04/2025 Procedure: Upper GI endoscopy Indications: Globus sensation, Throat clearing Providers: Boyd Watkins MD Referring MD: Boyd Watkins MD Medicines: Propofol per Anesthesia Complications: No immediate complications. Estimated Blood Loss: Estimated blood loss was minimal. Procedure: Pre-Anesthesia Assessment: - ASA Grade Assessment: II - A patient with mild systemic disease. After obtaining informed consent, the endoscope was passed under direct vision. Throughout the procedure, the patient's blood pressure, pulse, and oxygen saturations were monitored continuously.The Endoscope was introduced through the mouth, and advanced to the second part of duodenum. The upper GI endoscopy was accomplished without difficulty. The patient tolerated the procedure well. Findings: The mid esophagus was normal. Biopsies were taken with a cold forceps for histology. The examined esophagus was normal. The hypopharynx was normal. The stomach was normal. The examined duodenum was normal. Procedure Code(s): --- Professional --- 41653, Esophagogastroduodenoscopy, flexible, transoral; with biopsy, single or multiple Diagnosis Code(s): --- Professional --- F45.8, Other somatoform disorders CPT copyright 2020 [employer]. All rights reserved. The codes documented in this report are preliminary and upon scientific informatics analyst review may be revised to meet current compliance requirements. Boyd Watkins MD 02/04/2025 8:34:38 AM This report has been signed electronically.Boyd Watkins MD Number of Addenda: 0 Note Initiated On: 02/04/2025 8:25 AM Scope In: Scope Out: Endoscopy Department at [facility] - [address] [place] [phone] Procedure Note Boyd Watkins MD - 02/04/2025 [facility] GI Patient Name: Minal Lopez Procedure Date: 02/04/2025 8:25 AM Date of : 1950 Age: 74 Room: ROOM 14 Gender: Female Note Status: Finalized Attending MD: Boyd Watkins MD, Procedure Date No Time: 02/04/2025 Procedure: Upper GI endoscopy Indications: Globus sensation, Throat clearing Providers: Boyd Watkins MD Referring MD: Boyd Watkins MD Medicines: Propofol per Anesthesia Complications: No immediate complications. Estimated Blood Loss: Estimated blood loss was minimal. Procedure: Pre-Anesthesia Assessment: - ASA Grade Assessment: II - A patient with mild systemic disease. After obtaining informed consent, the endoscope was passed under direct vision. Throughout theprocedure, the patient's blood pressure, pulse, and oxygen saturations were monitored continuously.TheEndoscope was introduced through the mouth, and advanced tothe second part of duodenum. The upper GI endoscopy was accomplished without difficulty. The patienttolerated the procedure well. Findings: The mid esophagus was normal. Biopsies were takenwith a cold forceps for histology. The examined esophagus was normal. The hypopharynx was normal. The stomach was normal. The examined duodenum was normal. Procedure Code(s): --- Professional --- 88031, Esophagogastroduodenoscopy, flexible, transoral; with biopsy, single or multiple Diagnosis Code(s): --- Professional --- F45.8, Other somatoform disorders CPT copyright 2020 [employer]. All rights reserved. The codes documented in this report are preliminary and upon scientific informatics analyst reviewmay be revised to meet current compliance requirements. Boyd Watkins MD 02/04/2025 8:34:38 AM This report has been signed electronically.Boyd Watkins MD Number of Addenda: 0 Note Initiated On: 02/04/2025 8:25 AM Scope In: Scope Out: Endoscopy Department at [facility] - [address] [place] [phone] IMPRESSION: - Normal mid esophagus. Biopsied. - Normal esophagus. - Normal hypopharynx. - Normal stomach. - Normal examined duodenum. Recommendation: - Await pathology results. - Continue present medications. Boyd Watkins MD GI~PROCEDURE ORDERABLES Fin al Result * Tissue exam (02/04/2025 8:29 AM EDT) Final Diagnosis Esophagus, mid, biopsies: Focal acute esophagitis. No infectious etiology identified. Note: No fungal forms are identified on routine stains. Because of acute inflammation, GMS stain is performed with appropriate controls and is interpreted as negative, supporting the above diagnosis. 4:55 PM EDT [facility] Gross Description A. Esophagus, mid biopsies: Labeled esophagus mid . Received in formalin are irregular pink-white tissue fragments, ranging from 0.1 cm to 0.2 cm in dimension, which are wrapped in paper and submitted in toto in one cassette, three pieces, multiple levels on one slide. HELEN 4:55 PM EDT [facility] Disclaimer NOTE: The immunohistochemical tests and in situ hybridization tests were developed and their performance characteristics were determined by [facility]. They have not been cleared or approved by the U.S. Food and Drug Administration. The FDA has determined that such clearance or approval is not necessary. These tests are used for clinical purposes. They should not be regarded as investigational or for research. This laboratory is certified under the Clinical Laboratory Improvement Amendments of 1988 (CLIA) as qualified to perform high complexity clinical laboratory testing. (controls appropriate) Unless otherwise specified, all tissue is 10% NB formalin fixed and paraffin embedded. 4:55 PM EDT [facility] Tissue Esophageal structure / Unknown 02/04/2025 8:29 AM EDT 02/04/2025 10:34 AM EDT us Boyd Watkins MD LAB PATHOLOGY ORDERABLES Fi nal Result [facility] [address] [place] [address], * MG Mammo Digital Screening w Roderick bilat (05/14/2024 9:40 AM EST) Anatomical Region Laterality Modality Breast Bilateral Mammography 05/15/2024 6:48 AM EST Impressions 05/15/2024 6:53 AM EST No mammographic evidence of malignancy. No suspicious interval change. A negative mammogram in the presence of a clinically suspicious palpable abnormality does not preclude the possibility of malignancy or alter the indications for biopsy. ASSESSMENT: BI-RADS 1: NEGATIVE RECOMMENDATION(S): 1: Routine screening mammogram BILATERAL in 1 year. -------- FINAL REPORT -------- Dictated By: Brad Ybarra Dictated Date: 05/15/2024 06:48 ET Assigned Physician: Brad Ybarra Reviewed and Electronically Signed By: Brad Ybarra Signed Date: 05/15/2024 06:53 ET Workstation ID: [id number] Transcribed By: Self Edit Transcribed Date: 05/15/2024 06:48 ET Narrative 05/15/2024 6:53 AM EST EXAM: SCREENING MAMMOGRAPHY, BILATERAL HISTORY: SCREENING. Family history of breast cancer; sister, sister, paternal aunt, maternal aunt COMPARISON: 05/11/2023, 05/14/2022, 05/07/2022, 05/05/2021 TECHNIQUE: Synthesized CC and MLO projections of each breast. Tomosynthesis of each breast in the CC and MLO projections. ADDITIONAL IMAGING: None Computer-aided detection was employed with the [employer] AI 3-D. TISSUE DENSITY: There are scattered areas of fibroglandular density. (BI-RADS category B) FINDINGS: RIGHT BREAST: No suspicious mass. No suspicious calcification. No distortion. No additional suspicious right breast findings LEFT BREAST: No suspicious mass. No suspicious calcification. No distortion. No additional suspicious left breast findings Procedure Note Brad Ybarra MD - 05/15/2024 EXAM: SCREENING MAMMOGRAPHY, BILATERAL HISTORY: SCREENING. Family history of breast cancer; sister, sister,paternal aunt, maternal aunt COMPARISON: 05/11/2023, 05/14/2022, 05/07/2022, 05/05/2021 TECHNIQUE: Synthesized CC and MLO projections of each breast.Tomosynthesis of each breast in the CC and MLO projections. ADDITIONAL IMAGING: None Computer-aided detection was employed with the [employer] AI 3-D. TISSUE DENSITY: There are scattered areas of fibroglandular density.(BI-RADS category B) FINDINGS: RIGHT BREAST: No suspicious mass. No suspicious calcification. No distortion. Noadditional suspicious right breast findings LEFT BREAST: No suspicious mass. No suspicious calcification. No distortion. Noadditional suspicious left breast findings IMPRESSION: No mammographic evidence of malignancy. No suspicious interval change. A negative mammogram in the presence of a clinically suspicious palpableabnormality does not preclude the possibility of malignancy or alter theindications for biopsy. ASSESSMENT: BI-RADS 1: NEGATIVE RECOMMENDATION(S): 1: Routine screening mammogram BILATERAL in 1 year. -------- FINAL REPORT -------- Dictated By: Brad Ybarra Dictated Date: 05/15/2024 06:48 ET Assigned Physician: Brad Ybarra Reviewed and Electronically Signed By: Brad Ybarra Signed Date: 05/15/2024 06:53 ET Workstation ID: [id number] Transcribed By: Self Edit Transcribed Date: 05/15/2024 06:48 ET us Self Referral Sppl IMG BI PROCEDURES Final Resul t * COLONOSCOPY (04/06/2022 11:32 AM EST) Anatomical Region Laterality Modality Endoscopy us Historical Provider GI~PROCEDURE ORDERABLES E dited Result - Final from Last 3 Months or Most Recently Relevant to Health Maintenance Insurance [employer] [employer] - [place]IC[place] AD[place]ANT[place] Care Teams Can Filling And Closing Machine Tender Relationship Specialty Start Date End Date Maddy Segovia MD [address] [place] [id number] PCP - General Internal Medicine 04/23/24
--- OUTSIDE RECORDS SUMMARY | 2025-03-06 12:08 | XMS_ITS | Clinical Summary ---
Author Organization [facility] Address [address] [place] [id number] Care Team Providers Care Engineer Booster And Exhauster Name Role Phone Nicko Garcia MD Primary Care Provider [phone] Allergies Active Allergy Reactions Criticality Noted Date [...] Immunizations Name Administration Dates Next Due Covid-19 (Consert) Dilution Required 01/23/2021,0 06/23/2020,06/02/2020 Social History Tobacco [...] - PCV) 2017 COVID-19 Vaccine ( season) 2025 01/23/2021, 06/23/2020, 06/13/2020, Additional history exists Influenza Vaccine (#1) 2025 RSV Adult > 60+ Yrs or (1 - 1-dose 75+ series) 11/02/2027 Hepatitis B Vaccines Aged Out No long er eligible based on patient's age to complete this topic RSV Ped < 20 months Aged Out No longe r eligible based on patient's age to complete this topic Medical Devices Implanted Type Area Dining Server Device Identifier Shelf Expiration Date Model / Serial / Lot Cement Bone Surg Simplex Radiopq Stry-Howm [id number] 092 - [id number] Implanted:Qty: 1 on 03/26/2021 by Alexander Babb MD at [facility] Left: Knee [employer] [id number] 03/22/2022 6191-1-010 / / [id number] Cement Bone Surg Simplex Radiopq Stry-Howm [id number] 092 - [id number] Implanted:Qty: 1 on 03/26/2021 by Alexander Babb MD at [facility] Left: Knee [employer] [id number] 03/22/2022 6191-1-010 / / [id number] Knee Baseplt Tib Cmnt Sz4 Stry-Howm 1365-[id number] 190 - [id number] Implanted:Qty: 1 on 03/26/2021 by Alexander Babb MD at [facility] Left: Knee [employer] [id number] 11/24/2025 5520-B-400 / / [id number] Knee Fem Triathlon Cr 3-Lt Stry-Howm 2752-[id number]-[id number] 199 - [id number] Implanted:Qty: 1 on 03/26/2021 by Alexander Babb MD at [facility] Left: Knee [employer] [id number] 01/29/2026 5515-F-301 / / [id number] Knee Tib Insrt Ps-X3 [id number] Stry-Howm 2361-[id number] 530 - [id number] Implanted:Qty: 1 on 03/26/2021 by Alexander Babb MD at [facility] Left: Knee [employer] [id number] 08/04/2025 5532-G-409 / / [id number] Knee Patella Asym X3 29x9mm Stry-Howm [id number] 282 - [id number] Implanted:Qty: 1 on 03/26/2021 by Alexander Babb MD at [facility] Left: Knee [employer] [id number] 10/01/2025 5551-G-299 / / [id number] Peg Fix Femoral Distal Stry-Howm 2119-[id number] 704 - [id number] Implanted:Qty: 1 on 03/26/2021 by Alexander Babb MD at [facility] Left: Knee [employer] [id number] 06/20/2025 5575-X-000 / / [id number] Advance Directives For more information, please contact: [phone] Latest Code Status on File Code Status [...] way: discussion with patient . Care Teams Engineer Booster And Exhauster Relationship Specialty Start Date End Date Nicko Garcia MD [address] [place] [address] [address] [place] [address] PCP - General Instructional Leader 01/13/21
--- OUTSIDE RECORDS SUMMARY | 2025-03-06 12:08 | XMS_ITS | Clinical Summary ---
Author Organization [facility] Address [address] [place] [address] Care Team Providers Care Tire Bladder Maker Name Role Phone Kell Oconnor MD Primary [...] COVID-19 Vaccine (1 - 2023-2 5 season) 2025 Influenza Vaccine (#1) 2025 HPV Vaccines Aged Out No longer eligi ble based on patient's age to complete this topic Hepatitis A Vaccines Aged Out No long er eligible based on patient's age to complete this topic Meningococcal Vaccine Aged Out No olena magnus eligible based on patient's age to complete this topic Insurance MEDICARE PART A & B [facility] Care Teams Tire Bladder Maker Relationship Specialty Start Date End Date Kell Oconnor MD [address] [facility] [address] [place] [address] PCP - General Primary Care 03/26/19
--- OUTSIDE RECORDS SUMMARY | 2025-03-06 12:08 | XMS_ITS | Encounter Summary ---
Author Organization [facility] Address [address] [place] [address] Care Team Providers Care Procurement Intern Name Role Phone Maddy Segovia MD Primary Care Provider [phone] Reason for Visit * Reason Comments Medical Complaint Encounter Details Date Type Department Care Team (Late st Contact Info) Description 02/03/2023 Telephone [facility] [address] [place] [phone] John English MD [address] [place] [address] Medical Complaint Social History Tobacco Use Types Packs/Day Years Used Date Smoking Tobacco: Never Assessed Comments Unknown Sex and Gender Information Value Date Recorded Sex Assigned at Female 02/18/2025 8:40 AM EDT Legal Sex Female 10:30 AM EDT Gender Identity Not on file Sexual Orientation Not on file documented as of this encounter Plan of Treatment Not on file documented as of this encounter Visit Diagnoses Not on filedocumented in this encounter Care Teams Procurement Intern Relationship Specialty Start Date End Date Maddy Segovia MD [address] [place] [address] PCP - General Internal Medicine 02/03/23 documented as of this encounter
--- OUTSIDE RECORDS SUMMARY | 2025-03-06 12:08 | XMS_ITS ---
Author Name [facility] Organization Unknown Problems Problem Status Onset Date Problem Type Date of Resoluti on Source Pain in left ankle and joints of left foot active EncounterDiagnosisAct CCT Encounters Encounter Type Encounter Reason Primary Diagnosis Location Date Ambulatory [facility] 02/19/2025 Ambulatory Pain in left ankle and joints of left foot Pain in left ankle and joints of left foot [facility] 02/19/2025 Ambulatory [facility] 10/01/2022 Ambulatory [facility] 09/27/2022 Care Team Organization Name Specialty Phone Email Start Date End Da te [facility] 02/19/2025 [facility] CAITLYN PEREZ Primary Care 03/04/2023 023
--- OUTSIDE RECORDS SUMMARY | 2025-03-06 12:08 | XMS_ITS | Clinical Summary ---
Author Organization [facility] Address [address] [place] [address] Care Team Providers Care Molding Line Operator Name Role Phone Maddy Segovia MD Primary Care Provider [phone] Encounters Date Type Department Care Team Description 02/19/2025 9:05 AM EDT Ancillary [facility] [address] [address] 02/19/2025 9:00 AM EDT Consult [facility] [address] [address] Robert Estrada MD Pain in left ankle and joints of left foot (Primary Dx) from Last 3 Months Social History Tobacco Use Types Packs/Day Years Used Date Smoking Tobacco: Never Assessed Comments Unknown Sex and Gender Information Value Date Recorded Sex Assigned at Female 02/18/2025 8:40 AM EDT Legal Sex Female 10:30 AM EDT Gender Identity Not on file Sexual Orientation Not on file Plan of Treatment Health Maintenance Due Date Last Done Comments Advance Care Planning 1950 Hepatitis C Virus Screening 1950 DTaP/Tdap/Td Vaccines (1 - Tdap) 11/02/1971 Mammogram 1992 Colonoscopy 1997 Pneumococcal Vaccines 50+ (1 of 1 - PCV) 2002 Zoster (Shingles) Vaccine (1 of 2) 2002 DXA Bone Density (Females,Ages 65 and older) 2017 Influenza Vaccine 12/21/2024 02/25/2023, , 04/25/2021, Additional history exists COVID-19 Vaccine ( season) 2025 03/23/2023, 01/23/2021 RSV Vaccine 50 years and older and Patients (1 - 1-dose 75+ series) 11/02/2027 Hepatitis B Vaccines Aged Out No long er eligible based on patient's age to complete this topic Procedures Procedure Name Priority Date/Time Associated Diagnosis Comments XR FOOT 3+ VIEWS-LEFT Routine 02/19/2025 10:32 AM EDT Pain in left ankle and joints of left foot from Last 3 Months Results * XR Foot 3+ views-Left (02/19/2025 10:32 AM EDT) Narrative OA - 02/19/2025 10:32 AM EDT This exam was performed in office at [facility] and images reviewed by orthopedic provider. Any findings are documented within ambulatory encounter note on date of service. Robert Estrada MD IMG DIAGNOSTIC IMAGING ORDERA BLES Final Result [facility] from Last [address] [place] [address] [place] [address] [employer] MGD MEDICARE OUT OF NETWORK [employer] MGD MEDICARE OUT OF NETWORK Care Teams Molding Line Operator Relationship Specialty Start Date End Date Maddy Segovia MD [address] [place] [address] PCP - General Internal Medicine 02/03/23
== END 2025-03-06 10:41 | disposition home or self-care (01) ==
PROVIDERS: PCP Internal Medicine; Visit Provider Orthopaedic Surgery
DX: M48.02 Spinal stenosis, cervical region (principal)
CPT/HCPCS: 99213; G2211

== ENCOUNTER → 2025-03-06 10:15 | Outpatient (BNVA) | payer MEDICARE, SELFPAY | PROVIDERS: PCP Internal Medicine; Visit Provider Orthopaedic Surgery | DX: M48.02 Spinal stenosis, cervical region (principal) | CPT/HCPCS: 99212 ==

== ENCOUNTER 2025-04-22 12:44 | Outpatient (AMB) | payer MEDICARE, SELFPAY ==
--- NOTE | 2025-04-22 13:00 | HO.SPINEOV ---
Vital Signs 04/22/25 13:02 Height 5 ft 3 in Weight 128 lb BMI 22.7 Intake Visit Reasons: Spinal stenosis Intake Note: Ms. Gómez is her today c/o low back pain. MRI done at [facility]. 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 She is a very nice 74-year-old female history of rheumatoid arthritis who has a history of 2 previous left shoulder surgeries, who has had persistent left shoulder pain now for quite some time. Part of her workup was a cervical MRI which shows cervical stenosis and she was referred over to us for an evaluation. She currently does not report any significant neck pain. She also denies any history of tingling numbness weakness radiating down the arms, no radicular pain shooting down the arm. No loss of fine motor movements or gait imbalance etc.. All of her pain is localized right over the deltoid region and into the rotator cuff area. It is aggravated with motion of her arm, specifically trying to put her arm behind her back or put her arm overhead. The only thing that seems to help it is prednisone which she takes daily for rheumatoid arthritis as well. PMH: Hysterectomy, knee replacement, rotator cuff repair at [facility] a number of years ago which ultimately fell apart requiring subsequent revision surgery at that time. History of hypertension high cholesterol which are managed fairly well. Social hx: She has not smoke, drink or use any recreational drugs Medications: Hydrochlorothiazide, carvedilol, simvastatin, losartan, prednisone Allergies: Humira and Enbrel Physical exam: Awake alert oriented no acute distress, she is able to independently stand up walk down the hallway with normal gait, tandem gait walking does not reveal any evidence of instability, motor examination reveals some limitations with left shoulder movement but no specific loss of motor function. She does have significant pain when attempting to raise her hand overhead, or put her arm behind her back. Reflexes are 3+ and symmetric throughout, no clonus or Zack's sign are seen. No muscle wasting or atrophy of the hands or arms seen. Imaging review: Cervical MRI done at [place] shows C3-4 moderate stenosis, C4-5 moderate stenosis. No cord signal changes seen. She has varying degrees of foraminal stenosis throughout the cervical spine. Impression: 74-year-old female with history of left rotator cuff surgery done at [facility] a number of years ago, subsequently had to have that same surgery revised, who has over the ensuing years developed persistent left shoulder pain that has been only getting worse. Although she has some cervical stenosis seen on her imaging, she does not have any of the classic symptoms of it including shooting pain down her arm, loss of motor function, gait imbalance, fine motor loss, and tingling numbness of the arms etc.. Her pain is very localized to the shoulder area and can be aggravated on exam with manipulation and movement overhead or trying to put her arm behind her back which would favor this probably coming from her shoulder. It is important that we continue to monitor her, typically Dr. Fuentes will do a follow-up examination in 6 months and if serial clinical examinations do not reveal any signs or symptoms, usually we just have the patient follow-up down the road if symptoms develop. I explained all this to her and her . She was asking about a shoulder MRI and I told her I would defer that to your professional judgment. I will review her imaging with Dr. Fuentes to see if he has any other thoughts. Thank you for allowing us to care for your patient. The total time spent with this visit with this patient was 45 minutes reviewing history, physical exam, cervical imaging review, and implementation of treatment plan or further diagnostic testing John Fuentes MD,PhD [facility] Coding Level of Care Code New Pt Level 4 (19076) Diagnoses Cervical stenosis of spinal canal M48.02
[2025-04-22 13:02] VITALS: BMI 22.7
--- OUTSIDE RECORDS SUMMARY | 2025-04-22 16:20 | XMS_ITS | Clinical Summary ---
Author Organization [facility] Address [address] [place] [address] Phone Care Team Providers Care Advertising Coordinator Name Role Phone Pcp, Unknown Unavailable Unavailable Maddy Summers MD Primary Care Provider [phone] Allergies Active Allergy Reactions Criticality Noted Date [...] nightly at bedtime. at bedtime. 10/25/2022 Active ferrous sulfate 325 mg (65 mg resighini iron) tablet Take 325 mg by mouth daily with breakfast. Active cholecalciferol (VITAMIN D3) 25 MCG (1,000 unit) tablet Take 1,000 Units by mouth daily. Active predniSONE (DELTASONE) 5 MG tablet Take 1 tablet (5 mg total) by mouth daily with breakfast. 90 tablet 1 03/11/2025 Active Active Problems Problem Noted Date Diagnosed Date Rheumatoid arthritis involvi ng multiple sites with positive rheumatoid factor 02/08/2023 Assessment & Plan (03/11/2025 11:14 AM EDT): -- Patient plans to continue prednisone 5 mg/day. Prescription renewed. --Extensive discussion upon risks including immunosuppression, increased risk infection, potential adrenal insufficiency if this medicine is discontinued suddenly, and increased risk of fractures independent of bone density numbers -- Record request for the blood work patient did last week. She believes sed rate, CRP were included for RA assessment. Assessment & Plan (10/22/2023 4:17 PM EDT): [...] Encounters Date Type Department Care Team Description 03/13/2025 Telephone [facility] [address] [place] [address] [place] [address] Kellee Templeton DO Lab Results 03/12/2025 Orders Only [facility] [address] [place] [address] [place] [address] Mohsen Brown MD 03/11/2025 10:00 AM EDT Office Visit [facility] [address] [place] [address] [place] [address] Kellee Templeton DO Rheumatoid arthritis involving multiple sites with positive rheumatoid factor (Primary Dx); rn long term care (current) use of systemic steroids 03/11/2025 Telephone [facility] [address] [place] [address] [place] [address] Kellee Templeton DO 03/06/2025 Telephone [facility] [address] [place] [address] [place] [address] Nuvia Honeycutt [place] 02/18/2025 Refill [facility] [address] [place] [address] Willa Quinn MD, PhD Medication Refill 01/25/2025 Telephone [facility] [address] [place] [address] [place] [address] Unknown, Unknown, MD Follow Up Visit from [...] Sign Reading Time Taken Comments Blood Pressure 138/60 03/11/2025 10:29 AM EDT Pulse 78 03/11/2025 10:29 AM EDT Temperature 36.6 C (97.9 F) 01/30/2024 8:43 AM EDT Respiratory Rate 16 01/03/2023 10:54 AM EDT Oxygen Saturation 98% 03/11/2025 10:29 AM EDT Inhaled Oxygen Concentration - - Weight 60.8 kg (134 lb) 03/11/2025 10:29 AM EDT Height 160 cm (5' 3 ) 01/30/2024 8:43 AM EDT Body Mass Index 23.74 01/30/2024 8:43 AM EDT Plan of Treatment Health Maintenance [...] Additional history exists COVID-19 VACCINE ( - 2024- season) 2025 02/22/2022 POTASSIUM LEVEL 01/29/2025 01/30/2024, 04/22, 01/03/2023 CREATININE LEVEL 10/05/2025 10/05/2024, 01/2024, 05/03/2023, Additional history exists MAMMOGRAM 05/14/2026 05/14/2024, 05/14/2024 RSV VACCINE (1 - 1-dose 75+ series) 11/02/2027 Adult Td,Tdap Booster 06/16/2028 06/16/2018, 018 PNEUMOCOCCAL VACCINES (50+ years) Completed 12/25/2018, 12/12/2017 HEPATITIS C SCREENING Completed 01/03/2023, 023 HEPATITIS A VACCINES Aged Out No long [...] Procedure Name Priority Date/Time Associated Diagnosis Comments OUTSIDE LAB Routine 03/12/2025 8:53 AM EDT COMPREHENSIVE METABOLIC PANEL (CMP) Routine 10/05/2024 11:05 AM EDT COMPREHENSIVE METABOLIC PANEL (CMP) Routine 01/30/2024 10:04 AM EDT Rheumatoid arthritis involving multiple sites with positive rheumatoid factor HEPATITIS C ANTIBODY, QUALITATIVE Routine 01/03/2023 11:49 AM EDT Rheumatoid arthritis involving multiple sites with positive rheumatoid factor Need for hepatitis C screening test from Last 3 Months or Most Recently Relevant to Health Maintenance Results * Outside Lab (03/12/2025 8:53 AM EDT) us Mohsen Brown MD LAB BLOOD BKR ORDERABLES Final Result * Comprehensive metabolic panel (10/05/2024 11:05 AM EDT) Only the most recent of2 resultswithin the time period is included. us Historical Provider LAB BLOOD BKR ORDERABLES Final Result * Hepatitis C antibody, qualitative (01/03/2023 11:49 AM EDT) HCV NON-REACTIV E NON-REACTI VE [facility] Blood 01/03/2023 11:4 9 AM EDT 01/03/2023 11:50 AM EDT us Dalton Lamar MD LAB BLOOD BKR ORDERABLE S Final Result [facility] [address] [place] [address] from Last 3 Months or Most Recently Relevant to Health Maintenance Insurance [facility] MEDICARE PPO BLUE REPLACEMENT MEDICARE PART A & B [facility] MEDICARE PPO BLUE REPLACEMENT MEDICARE PART A & B [facility] MEDICARE PPO BLUE REPLACEMENT MEDICARE PART A & B [facility] MEDICARE PPO BLUE REPLACEMENT MEDICARE PART A & B [facility] MEDICARE PPO BLUE REPLACEMENT MEDICARE PART A & B [facility] MEDICARE PPO BLUE REPLACEMENT MEDICARE PART A & B MEDICARE PART A & B [place]UE RE[place]AC[place] MEDICARE PART A & B MEDICARE PPO BLUE REPLACEMENT MEDICARE PART A & B MEDICARE PPO BLUE REPLACEMENT MEDICARE PART A & B MEDICARE PPO BLUE REPLACEMENT MEDICARE PART A & B Member Subscriber Plan / Payer (Ef fective 2018-Present) Name:Minal Gómez Member ID:[id number] Relation to Subscriber:Self Name:Minal Gómez Subscriber ID:[id number] Payer ID:[id number] Group ID:Not on file Type:Medicare Address: [employer] [address] [place] [address] [place] [address] MEDICARE PPO BLUE REPLACEMENT MEDICARE PART A & B MEDICARE PPO BLUE REPLACEMENT MEDICARE PART A & B Member Subscriber Plan / Payer (Ef fective 2018-Present) Name:Minal Gómez Member ID:[id number] Relation to Subscriber:Self Name:Minal Gómez Subscriber ID:[id number] Payer ID:[id number] Group ID:Not on file Type:Medicare Address: [employer] [address] [place] [address] [place] [address] MEDICARE PPO BLUE REPLACEMENT MEDICARE PART A & B [place] MED[place] BLUE REPLAC[place] MEDICARE PART A & B [place] BLUE REPLACEMENT Care Teams Advertising Coordinator Relationship Specialty Start Date End Date Maddy Summers MD [address] [place] [phone] PCP - General Internal Medicine 10/04/23 Pcp, Unknown 11/29/22 Additional Source Comments The information contained in this document represents components of the legal health record. It is not the complete legal health record.[facility]
--- OUTSIDE RECORDS SUMMARY | 2025-04-22 16:20 | XMS_ITS | Clinical Summary ---
Author Organization [facility] Address [address] [place] [address] Care Team Providers Care Chief Lending Officer Name Role Phone Maddy Segovia MD Primary Care Provider [phone] Encounters Date Type Department Care Team Description 02/19/2025 9:05 AM EDT [facility] [address] [address] 02/19/2025 9:00 AM EDT [facility] [address] [address] Robert Estrada MD Pain in left ankle [...] was performed in office at [facility] and images reviewed by orthopedic provider. Any findings are documented within ambulatory encounter note on date of service. Robert Estrdaa MD IMG DIAGNOSTIC IMAGING ORDERA BLES Final Result [facility] from Last [address] [place] [address] [employer] MGD MEDICARE OUT OF NETWORK [id number] MGD MEDICARE OUT OF NETWORK Care Teams Chief Lending Officer Relationship Specialty Start Date End Date Maddy Segovia MD [address] [place] [address] PCP - General Internal Medicine 02/03/23
--- OUTSIDE RECORDS SUMMARY | 2025-04-22 16:20 | XMS_ITS | Clinical Summary ---
Author Organization [facility] Address [address] [place] [address] Care Team Providers Care Office Administration Instructor Name Role Phone Kell Oconnor MD [...] of 2) 2002 COVID-19 Vaccine (1 - 2024-2 6 season) 2025 Influenza Vaccine (#1) 2025 HPV Vaccines Aged Out No longer eligi ble based on patient's age to complete this topic Hepatitis A Vaccines Aged Out No long er eligible based on patient's age to complete this topic Meningococcal Vaccine Aged Out No olena magnus eligible based on patient's age to complete this topic Insurance MEDICARE PART A & B [facility] Care Teams Office Administration Instructor Relationship Specialty Start Date End Date Kell Oconnor MD [address] [facility] [address] [place] [address] PCP - General Primary Care 03/26/19
--- OUTSIDE RECORDS SUMMARY | 2025-04-22 16:21 | XMS_ITS | Clinical Summary ---
Author Organization [facility] Address [address] [place] [address] Care Team Providers Care Student Development Coordinator Name Role Phone Nicko Garcia MD Primary Care Provider [phone] Allergies Active Allergy Reactions Criticality Noted Date [...] Immunizations Name Administration Dates Next Due Covid-19 ([employer]) Dilution Required 01/23/2021,0 06/23/2020,06/02/2020 Social History Tobacco [...] this topic Medical Devices Implanted Type Area Hotel Staff Member Device Identifier Shelf Expiration Date Model / Serial / Lot Cement Bone Surg Simplex Radiopq Stry-Howm 5459-0-601-114 092 - [id number] Implanted:Qty: 1 on 03/26/2021 by Alexander Babb MD at [facility] Left: Knee [employer] [id number] 03/22/2022 6191-1-010 / / [id number] Cement Bone Surg Simplex Radiopq Stry-Howm [id number] 092 - [id number] Implanted:Qty: 1 on 03/26/2021 by Alexander Babb MD at [facility] Left: Knee [employer] [id number] 03/22/2022 6191-1-010 / / [id number] Knee Baseplt Tib Cmnt Sz4 Stry-Howm 9332-U-[id number] 190 - [id number] Implanted:Qty: 1 on 03/26/2021 by Alexander Babb MD at [facility] Left: Knee [employer] [id number] 11/24/2025 5520-B-400 / / [id number] Knee Fem Triathlon Cr 3-Lt Stry-Howm 9659-K-[id number] 199 - [id number] Implanted:Qty: 1 on 03/26/2021 by Alexander Babb MD at [facility] Left: Knee [employer] [id number] 01/29/2026 5515-F-301 / / [id number] Knee Tib Insrt Ps-X3 6a8e9re Stry-Howm 2484-[id number]-[id number] 530 - [id number] Implanted:Qty: 1 on 03/26/2021 by Alexander Babb MD at [facility] Left: Knee [employer] [id number] 08/04/2025 5532-G-409 / / [id number] Knee Patella Asym X3 29x9mm Stry-Howm 8284-K-[id number] 282 - [id number] Implanted:Qty: 1 on 03/26/2021 by Alexander Babb MD at [facility] Left: Knee [employer] [id number] 10/01/2025 5551-G-299 / / [id number] Peg Fix Femoral Distal Stry-Howm 7066-G-[id number] 704 - [id number] Implanted:Qty: 1 on 03/26/2021 by Alexander Babb MD at [facility] Left: Knee [employer] [id number] 06/20/2025 5575-X-000 / / [id number] Advance Directives For more information, please contact: [phone] Latest Code Status on File Code Status [...] way: discussion with patient . Care Teams Student Development Coordinator Relationship Specialty Start Date End Date Nicko Garcia MD [address] [place] [address] [address] [place] [address] PCP - General Sports Doctor 01/13/21
--- OUTSIDE RECORDS SUMMARY | 2025-04-22 16:21 | XMS_ITS | Clinical Summary ---
Author Organization 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 Name Role Phone Maddy Segovia MD Primary Care Provider + [phone] Allergies Active Allergy Reactions Criticality Noted Date [...] Pure hypercholesterolemia 01/28/2025 Rheumatoid arthritis (CMS/HCC V24, CMS/[facility] V28) 01/28/2025 Simple renal cyst 01/28/2025 Sensorineural hearing loss 01/28/2025 Post-traumatic osteoarthritis of multiple joints 02/08/2023 Encounters Date Type Department Care Team Description 02/07/2025 Telephone Gastroenterology - [address] [phone] Marla Badillo [place] 02/04/2025 8:22 AM EDT Anesthesia Event [facility] [address] [place] [phone] Edson Vega MD 02/04/2025 7:22 AM EDT - 02/04/2025 11:59 PM EDT Hospital Encounter [facility] [address] [place] [phone] Boyd Watkins MD Decandio, Laura, CRNA Spencer, Mark A, MD Globus sensation; Throat clearing Discharge Disposition: Home or Self Care 01/29/2025 9:20 AM EDT Office Visit Gastroenterology - [address] [phone] Boyd Watkins MD Globus sensation (Primary Dx); Throat clearing 01/29/2025 Telephone Gastroenterology - [address] [phone] Debbie Ramirez MA from Last 3 Months Surgical History Surgery Date Site/Laterality Comments WRIST SURGERY PROCEDURE:WRIST SURGERY CHOLECYSTECTOMY PROCEDURE:CHOLECYSTECTOMY ROTATOR CUFF REPAIR 12/2019 Left PROCEDURE:ROTATOR CUFF REPAIR;COMMENT:08/2020 revision HYSTERECTOMY PROCEDURE:HYSTERECTOMY CYSTOCELE REPAIR PROCEDURE:CYSTOCELE REPAIR CYSTOSCOPY 2014 PROCEDURE:CYSTOSCOPY TOTAL KNEE ARTHROPLASTY 03/26/2021 Left PROCEDURE:TOTAL KNEE ARTHROPLASTY;COMMENT:Procedure: REPLACEMENT TOTAL KNEE; Surgeon: Alexander Babb MD; Location: [facility] ([facility] Service: Orthopedics; Laterality: [...] 02/04/2025 7:49 AM EDT Plan of Treatment Upcoming Encounters Date Type Department Care Team (Late st Contact Info) Description 05/15/2025 9:00 AM EST Appointment [facility] at [address] [phone] Health Maintenance Due Date Last Done Comments Zoster Vaccines (2 of 3) 03/15/2017 01/18/2017 Cholesterol Screening (Lipid Panel) 04/30/2022 Medicare Annual Wellness Visit 04/30/2022 Osteoporosis Screening (Bone Density Screening) 04/30/2022 Social Influencers of Health Screening 04/30/2022 Depression Screening 05/23/2024 COVID-19 Vaccine ( season) 2025 03/23/2023, 02/22/2022, 01/23/2021, Additional history exists Influenza Vaccine (#1) 2025 4, 02/25/2023, 02/22/2022, Additional history exists Hypertension/CHF/CAD Annual BMP Blood Test 01/29/2025 01/30/2024, 05/03/2023, 01/03/2023 Falls Risk Assessment 02/04/2026 02/04/2025 Breast Cancer Screening 05/14/2026 05/14/20 24, 05/11/2023, 05/07/2022, Additional history exists RSV Immunization [...] this topic Medical Devices Implanted Type Area Recovery Agent Device Identifier Shelf Expiration Date Model / Serial / Lot Cement Bone Surg Simplex Radiopq Stry-Howm [id number] Implanted:Qty: 1 on 03/26/2021 by Alexander Babb MD Left: Knee [employer] [id number] 03/22/2022 6191-1-010 / / [id number] Cement Bone Surg Simplex Radiopq Stry-Howm [id number] 092 Implanted:Qty: 1 on 03/26/2021 by Alexander Babb MD Left: Knee [employer] [id number] 03/22/2022 6191- / / [id number] Knee Baseplt Tib Cmnt Sz4 Stry-How 3825-U-[id number] 190 Implanted:Qty: 1 on 03/26/2021 by Alexander Babb MD Left: Knee [employer] [id number] 11/24/2025 5520-B-400 / / [id number] Knee Fem Triathlon Cr 3-Lt Stry-Howm 5662-[id number] 199 Implanted:Qty: 1 on 03/26/2021 by Alexander Babb MD Left: Knee [employer] [id number] 01/29/2026 5515-F-301 / / [id number] Knee Tib Insrt Ps-X3 [id number] Stry-Howm 7196-[id number] 530 Implanted:Qty: 1 on 03/26/2021 by Alexander Babb MD Left: Knee [employer] [id number] 08/04/2025 5532-G-409 / / [id number] Knee Patella Asym X3 29x9mm Stry-Howm [id number] Implanted:Qty: 1 on 03/26/2021 by Alexander Babb MD Left: Knee [employer] [id number] 10/01/2025 5551-G-299 / / [id number] Peg Fix Femoral Distal Stry-Howm 0527-Z-[id number] Implanted:Qty: 1 on 03/26/2021 by Alexander Babb MD Left: Knee [employer] [id number] 06/20/2025 5575-X-000 / / [id number] Procedures Procedure [...] Maintenance Results * EGD Anesthesia - MAC; [facility] END[facility]COPY (02/04/2025 8:34 AM EDT) Anatomical Region Laterality Modality Other 02/04/2025 8:25 AM EDT Impressions 02/04/2025 8:34 AM EDT - Normal mid esophagus. Biopsied. - Normal esophagus. - Normal hypopharynx. - Normal stomach. - Normal examined duodenum. Recommendation: - Await pathology results. - Continue present medications. Narrative 02/04/2025 8:34 AM EDT [facility] Patient Name: Minal Lopez Procedure Date: [...] was normal. Procedure Code(s): --- Professional --- 19271, Esophagogastroduodenoscopy, flexible, transoral; with biopsy, single or multiple Diagnosis Code(s): --- Professional --- F45.8, Other somatoform disorders CPT copyright 2020 [employer]. All rights reserved. The codes documented in this report are preliminary and upon algebraist review may be revised to meet current compliance requirements. Boyd Watkins MD 02/04/2025 8:34:38 AM This report has been signed electronically.Boyd Watkins MD Number of Addenda: 0 Note Initiated On: 02/04/2025 8:25 AM Scope In: Scope Out: Endoscopy Department at [facility] - [address] [place] [phone] Procedure Note Boyd Watkins MD - 02/04/2025 [facility] Patient Name: Minal Lopez Procedure Date: [...] was normal. Procedure Code(s): --- Professional --- 42767, Esophagogastroduodenoscopy, flexible, transoral; with biopsy, single or multiple Diagnosis Code(s): --- Professional --- F45.8, Other somatoform disorders CPT copyright 2020 [employer]. All rights reserved. The codes documented in this report are preliminary and upon algebraist reviewmay be revised to meet current compliance requirements. Boyd Watkins MD 02/04/2025 8:34:38 AM This report has been signed electronically.Boyd Watkins MD Number of Addenda: 0 Note Initiated On: 02/04/2025 8:25 AM Scope In: Scope Out: Endoscopy Department at [facility] - [address] [place] [phone] IMPRESSION: - Normal mid esophagus. Biopsied. - Normal esophagus. - Normal hypopharynx. - Normal stomach. - Normal examined duodenum. Recommendation: - Await pathology results. - Continue present medications. us Boyd Watkins MD GI~PROCEDURE ORDERABLES Fin al Result * Tissue exam (02/04/2025 8:29 AM EDT) Final Diagnosis Esophagus, mid, biopsies: Focal acute esophagitis. No infectious etiology identified. Note: No fungal forms are identified on routine stains. Because of acute inflammation, GMS stain is performed with appropriate controls and is interpreted as negative, supporting the above diagnosis. 4:55 PM EDT [facility] at 1655 EDT Gross Description A. Esophagus, mid biopsies: Labeled esophagus mid . Received in formalin are irregular pink-white tissue fragments, ranging from 0.1 cm to 0.2 cm in dimension, which are wrapped in paper and submitted in toto in one cassette, three pieces, multiple levels on one slide. HELEN 4:55 PM EDT [facility] Disclaimer NOTE: The immunohistochemical tests and in situ hybridization tests were developed and their performance characteristics were determined by [facility]. They have not been cleared [...] fixed and paraffin embedded. 4:55 PM EDT [facility] Tissue Esophageal structure / Unknown 02/04/2025 8:29 AM EDT 02/04/2025 10:34 AM EDT Boyd Watkins MD LAB PATHOLOGY ORDERABLES Fi nal Result [facility] [address] [place] [address], * MG Mammo Digital Screening w Roderick [...] Signed Date: 05/15/2024 06:53 ET Workstation ID: [id number] Transcribed By: Self Edit Transcribed Date: 05/15/2024 [...] None Computer-aided detection was employed with the [facility] AI 3-D. TISSUE DENSITY: There are scattered [...] None Computer-aided detection was employed with the [facility] AI 3-D. TISSUE DENSITY: There are scattered [...] Signed Date: 05/15/2024 06:53 ET Workstation ID: [id number] Transcribed By: Self Edit Transcribed Date: 05/15/2024 06:48 ET us Self Referral Sppl IMG BI PROCEDURES Final Resul t * COLONOSCOPY (04/06/2022 11:32 AM EST) Anatomical Region Laterality Modality Endoscopy us Historical Provider GI~PROCEDURE ORDERABLES E dited Result - Final from Last 3 Months or Most Recently Relevant to Health Maintenance Insurance [employer] Care Teams Sweatband Decorating Machine Operator Relationship Specialty Start Date End Date Maddy Segovia MD [address] [place] [id number] PCP - General Internal Medicine 04/23/24
== END 2025-04-22 13:29 | disposition home or self-care (01) ==
LOC: HO.HNS 12:45
PROVIDERS: PCP Internal Medicine; Referring Provider Orthopaedic Surgery; Visit Provider Physician Assistant
DX: M48.02 Spinal stenosis, cervical region (principal)
CPT/HCPCS: 99204

== ENCOUNTER → 2025-04-22 12:44 | Outpatient (BNVA) | payer MEDICARE, SELFPAY | PROVIDERS: PCP Internal Medicine; Referring Provider Orthopaedic Surgery; Visit Provider Physician Assistant | DX: M48.02 Spinal stenosis, cervical region (principal); M06.9 Rheumatoid arthritis, unspecified; Z79.899 Other long term (current) drug therapy | CPT/HCPCS: 99202 ==